=== PATIENT | male | born 1975 | race Caucasian/White ===

== ENCOUNTER 2019-10-06 17:14 | Emergency (ER) | payer SELFPAY ==
[2019-10-06] MEDS ORDERED: KETOROLAC 30 MG/ML INJ ONE (17:59)
[2019-10-06 18:10] LABS: Absolute Lymphocytes (CBC) 1.6 K/uL (0.7-4.9); Basophils % 1.2 % (0-1.3); Hematocrit 43.1 % (39.6-49.0); Lymphocytes % 29.6 % (15.3-44.8); MPV 7.8 fL (7.6-11.3); RBC Red Blood Cell Count 4.63 M/uL (4.33-5.43)
[2019-10-06 18:11] LABS: Protime INR 1.03
[2019-10-06 18:23] LABS: ALT/SGPT 41 U/L (12-78); AST/SGOT 25 U/L (15-37); Albumin 3.6 g/dL (3.4-5.0); Alkaline Phosphatase 57 U/L (45-117); BUN Blood Urea Nitrogen 12 mg/dL (7-18); Bicarbonate 27 mmol/L (21-32); Bilirubin Total 0.3 mg/dL (0.2-1.0); Glucose Level 100 mg/dL (74-106); Potassium 3.7 mmol/L (3.5-5.1); Protein, Total 6.9 g/dL (6.4-8.2); Sodium Level 141 mmol/L (136-145)
--- NOTE | 2019-10-06 18:43 | RAD REPORT ---
EXAM DESCRIPTION: CT - CTHCSPWOC - 10/06/2019 6:12 pm CLINICAL HISTORY: Trauma, head and neck injury. Headache, cervical radiculopathy COMPARISON: <Comparisons> TECHNIQUE: Axial 5 mm thick images of the head were obtained. Axial 2 mm thick images of the cervical spine were obtained with sagittal and coronal reconstruction images generated and reviewed. All CT scans are performed using dose optimization technique as appropriate and may include automated exposure control or mA/KV adjustment according to patient size. FINDINGS: CT HEAD WITHOUT CONTRAST: No acute hemorrhage, hydrocephalus or extra-axial collection is identified.No areas of brain edema or midline shift. Mild mucosal thickening of the maxillary antra.The calvarium is intact. CT CERVICAL SPINE WITHOUT CONTRAST: No fracture or subluxation.No prevertebral soft tissues swelling is identified. IMPRESSION: No acute intracranial or cervical spine findings.
--- NOTE | 2019-10-06 18:47 | RAD REPORT ---
EXAM DESCRIPTION: RAD - Chest Single View - 10/06/2019 6:08 pm CLINICAL HISTORY: numbness of hands Chest pain. COMPARISON: <Comparisons> FINDINGS: Portable technique limits examination quality. The lungs are grossly clear. The heart is normal in size. No displaced fractures. IMPRESSION: No acute intrathoracic process suspected.
--- NOTE | 2019-10-06 19:09 | ER ---
Nurse's Notes [facility] Name: Catracho Simon Age: 44 yrs Sex: Male : 1975 Arrival Date: 10/06/2019 Time: 17:18 Bed 26 Private MD: Diagnosis: Acute maxillary sinusitis;Headache;Carpal tunnel syndrome Presentation: 10/06 17:23 Presenting complaint: Patient states: Akash hand pain, numbness and tingling x approx 1 ph week, worse at night, also reports intermittent headache in frontal area,describes as sharp and stabbing lasting approx 30 min. Transition of care: patient was not received from another setting of care. Onset of symptoms was October 06, 2019. Risk Assessment: Do you want to hurt yourself or someone else? Patient reports no desire to harm self or others. Initial Sepsis Screen: Does the patient meet any 2 criteria? No. Patient's initial sepsis screen is negative. Does the patient have a suspected source of infection? No. Patient's initial sepsis screen is negative. Care prior to arrival:. 17:23 Method Of Arrival: Ambulatory 17:23 Acuity: JACOB 3 ph Triage Assessment: 17:49 Headache History: Denies prior headaches. wh 17:50 Pain: Pain began 1 day ago. Also complains of no other associated symptoms. Historical: - Allergies: 17:27 No Known Allergies; ph - Home Meds: 17:27 None [Active]; ph - PMHx: 17:27 None; ph - Immunization history:: Adult Immunizations not up to date. - Social history:: Smoking status: Patient uses tobacco products, smokes one pack cigarettes per day. - Ebola Screening: : Patient negative for fever greater than or equal to 101.5 degrees Fahrenheit, and additional compatible Ebola Virus Disease symptoms Patient denies exposure to infectious person. Screenin:46 Abuse screen: Denies threats or abuse. Denies injuries from another. Nutritional screening: No deficits noted. Tuberculosis screening: No symptoms or risk factors identified. Fall Risk None identified. Assessment: 17:47 General: Appears in no apparent distress. Behavior is calm, cooperative, appropriate wh for age. Pain: Complains of pain in right arm and left arm Pain does not radiate. Pain currently is 5 out of 10 on a pain scale. Neuro: Level of Consciousness is awake, alert, obeys commands, Oriented to person, place, time, situation, Appropriate for age Television Director are equal bilaterally Moves all extremities. Gait is steady, Speech is normal, Facial symmetry appears normal, Pupils are PERRLA, Intact Reports headache frontal area, paresthesias in right arm and left arm. Cardiovascular: Heart tones S1 S2. Respiratory: Airway is patent Respiratory effort is even, unlabored, Respiratory pattern is regular, symmetrical. GI: Abdomen is flat, non-distended. : No signs and/or symptoms were reported regarding the genitourinary system. EENT: No signs and/or symptoms were reported regarding the EENT system. Derm: Skin is intact, is healthy with good turgor, Skin is pink, warm \T\ dry. normal. Musculoskeletal: Circulation, motion, and sensation intact. 19:33 Reassessment: Patient appears in no apparent distress at this time. No changes from previously documented assessment. Patient and/or family updated on plan of care and expected duration. Pain level reassessed. Patient is alert, oriented x 3, equal unlabored respirations, skin warm/dry/pink. Vital Signs: 17:26 BP 129 / 91; Pulse 78; Resp 18; Temp 98.0; Pulse Ox 97% on R/A; Weight 104.33 kg; ph Height 5 ft. 7 in. (170.18 cm); Pain 8/10; 19:33 BP 124 / 82; Pulse 67; Resp 18; Pulse Ox 97% ; wh 17:26 Body Mass Index 36.02 (104.33 kg, 170.18 cm) ph ED Course: 17:18 Patient arrived in ED. mr 17:26 Triage completed. ph 17:30 Benjie Blake is Primary Nurse. 17:35 Noah Scherer NP is PHCP. pm1 17:35 Kel Lawson MD is Attending Physician. pm1 17:48 Arm band placed on right wrist. 17:49 Patient has correct armband on for positive identification. Bed in low position. Call light in reach. Side rails up X 1. Pulse ox on. NIBP on. 17:59 Initial lab(s) drawn, by wv, sent to lab. Inserted saline lock: 20 gauge in left lt1 antecubital area, using aseptic technique. 18:07 Chest Single View XRAY In Process Unspecified. EDMS 18:12 CT completed. Patient tolerated procedure well. Patient moved back from CT. mw3 18:12 CT Head C Spine In Process Unspecified. EDMS 19:35 Velcro wrist splint applied to bilateral wrist. lt1 20:07 No provider procedures requiring assistance completed. IV discontinued, intact, bleeding controlled, No redness/swelling at site. Administered Medications: 18:08 Drug: TORadol - Ketorolac 15 mg Route: IVP; Site: left antecubital; 19:28 Follow up: Response: No adverse reaction 19:23 Drug: Rocephin 1 grams Route: IV; Rate: calculated rate; Site: left antecubital; 19:32 Follow up: Response: No adverse reaction; IV Status: Completed infusion 19:25 Drug: Zofran 4 mg Route: IVP; Site: left antecubital; 19:32 Follow up: Response: No adverse reaction 19:26 Drug: predniSONE 60 mg Route: PO; 19:28 Follow up: Response: No adverse reaction 19:27 Drug: Amboy 5 mg-325 mg 1 tabs Route: PO; 19:32 Follow up: Response: No adverse reaction Outcome: 19:08 Discharge ordered by MD. pm1 20:07 Discharged to home ambulatory, with family. 20:07 Condition: stable 20:07 Discharge instructions given to patient, family, Instructed on discharge instructions, follow up and referral plans. no drinking with medication, no driving heavy equipment, medication usage, POC Carpal Tunnel and Sinusitis Demonstrated understanding of instructions, follow-up care, medications, splint care, POC Prescriptions given X 3. 20:08 Patient left the ED. Signatures: Dispatcher [employer] EDWI LawrenceTaylor pacheco Patricia, RN RN ph Noah Scherer, SUPPLIER ENGINEER SUPPLIER ENGINEER pm1 Benjie Blake Ebony Jo mw3 Hailey Lala lt1
--- NOTE | 2019-10-06 19:09 | EDPHYS ---
Physician Documentation [facility] Name: Catracho Simon Age: 44 yrs Sex: Male : 1975 Arrival Date: 10/06/2019 Time: 17:18 Bed 26 Private MD: ED Physician Kel Lawson HPI: 10/06 17:58 This 44 yrs old Male presents to ER via Ambulatory with complaints of pm1 Headache, Numbness Of Arm, Numbness Of Hand. 17:58 The patient complains of pain to the forehead. The patient describes the headache as pm1 aching, intermittent. Onset: The symptoms/episode began/occurred 1 week(s) ago. Associated signs and symptoms: Pertinent positives: Pain at right wrist radiating up the arm, right hand numbness. Left hand numbness. Severity of symptoms: in the emergency department the pain has improved. Headache History: Denies prior headaches. The symptoms are alleviated by nothing. the symptoms are aggravated by nothing. The patient has not experienced similar symptoms in the past. The patient has not recently seen a physician. 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 Has been working with a new hand tool. Historical: - Allergies: 17:27 No Known Allergies; ph - Home Meds: 17:27 None [Active]; ph - PMHx: 17:27 None; ph - Immunization history:: Adult Immunizations not up to date. - Social history:: Smoking status: Patient uses tobacco products, smokes one pack cigarettes per day. - Ebola Screening: : Patient negative for fever greater than or equal to 101.5 degrees Fahrenheit, and additional compatible Ebola Virus Disease symptoms Patient denies exposure to infectious person. ROS: 17:58 Constitutional: Negative for fever, chills, and weight loss, Eyes: Negative for injury, pm1 pain, redness, and discharge, ENT: Negative for injury, pain, and discharge, Neck: Negative for injury, pain, and swelling, Cardiovascular: Negative for chest pain, palpitations, and edema, Respiratory: Negative for shortness of breath, cough, wheezing, and pleuritic chest pain, Abdomen/GI: Negative for abdominal pain, nausea, vomiting, diarrhea, and constipation, Back: Negative for injury and pain. 17:58 Skin: Negative for injury, rash, and discoloration. 17:58 MS/extremity: Positive for pain, of the right arm, Negative for decreased range of motion, deformity. 17:58 Neuro: Positive for headache, numbness to right and left hand, Negative for altered mental status, dizziness, weakness. Exam: 17:58 Constitutional: This is a well developed, well nourished patient who is awake, alert, pm1 and in no acute distress. Head/Face: Normocephalic, atraumatic. Eyes: Pupils equal round and reactive to light, extra-ocular motions intact. Lids and lashes normal. Conjunctiva and sclera are non-icteric and not injected. Cornea within normal limits. Periorbital areas with no swelling, redness, or edema. ENT: Nares patent. No nasal discharge, no septal abnormalities noted. Tympanic membranes are normal and external auditory canals are clear. Oropharynx with no redness, swelling, or masses, exudates, or evidence of obstruction, uvula midline. Mucous membranes moist. Neck: Trachea midline, no thyromegaly or masses palpated, and no cervical lymphadenopathy. Supple, full range of motion without nuchal rigidity, or vertebral point tenderness. No Meningismus. Chest/axilla: Normal chest wall appearance and motion. Nontender with no deformity. No lesions are appreciated. Cardiovascular: Regular rate and rhythm with a normal S1 and S2. No gallops, murmurs, or rubs. Normal PMI, no JVD. No pulse deficits. Respiratory: Lungs have equal breath sounds bilaterally, clear to auscultation and percussion. No rales, rhonchi or wheezes noted. No increased work of breathing, no retractions or nasal flaring. Abdomen/GI: Soft, non-tender, with normal bowel sounds. No distension or tympany. No guarding or rebound. No evidence of tenderness throughout. Back: No spinal tenderness. No costovertebral tenderness. Full range of motion. Skin: Warm, dry with normal turgor. Normal color with no rashes, no lesions, and no evidence of cellulitis. 17:58 Musculoskeletal/extremity: Extremities: grossly normal except: Positive Phalen's and Tinel test to right wrist, ROM: no acute changes, Circulation is intact in all extremities. 17:58 Neuro: Orientation: is normal, Cranial nerves: CN II- XII are normal as tested, Cerebellar function: normal finger to nose testing, Motor: is normal, moves all fours, Sensation: is normal, no obvious gross deficits, Gait: is steady, at a normal pace, without difficulty. Vital Signs: 17:26 BP 129 / 91; Pulse 78; Resp 18; Temp 98.0; Pulse Ox 97% on R/A; Weight 104.33 kg; ph Height 5 ft. 7 in. (170.18 cm); Pain 8/10; 19:33 BP 124 / 82; Pulse 67; Resp 18; Pulse Ox 97% ; wh 17:26 Body Mass Index 36.02 (104.33 kg, 170.18 cm) ph MDM: 17:36 Patient medically screened. pm1 19:08 Data reviewed: vital signs. Data interpreted: Pulse oximetry: on room air is 97 %. pm1 Interpretation: normal. Counseling: I had a detailed discussion with the patient and/or guardian regarding: the historical points, exam findings, and any diagnostic results supporting the discharge/admit diagnosis, lab results, radiology results, the need for outpatient follow up, to return to the emergency department if symptoms worsen or persist or if there are any questions or concerns that arise at home. 10/06 17:49 Order name: CBC with Diff; Complete Time: 18:31 pm1 10/06 17:49 Order name: CMP; Complete Time: 18:31 pm1 10/06 17:49 Order name: CT Head C Spine; Complete Time: 18:56 pm1 10/06 17:49 Order name: Chest Single View XRAY; Complete Time: 18:56 pm1 10/06 17:49 Order name: PT-INR; Complete Time: 18:31 pm1 10/06 17:49 Order name: EKG; Complete Time: 17:51 pm1 10/06 17:49 Order name: EKG - Nurse/Tech; Complete Time: 17:57 pm1 10/06 17:49 Order name: IV Saline Lock; Complete Time: 17:57 pm1 10/06 19:10 Order name: Wrist Splint; Complete Time: 19:26 pm1 Administered Medications: 18:08 Drug: TORadol - Ketorolac 15 mg Route: IVP; Site: left antecubital; 19:28 Follow up: Response: No adverse reaction 19:23 Drug: Rocephin 1 grams Route: IV; Rate: calculated rate; Site: left antecubital; 19:32 Follow up: Response: No adverse reaction; IV Status: Completed infusion 19:25 Drug: Zofran 4 mg Route: IVP; Site: left antecubital; 19:32 Follow up: Response: No adverse reaction 19:26 Drug: predniSONE 60 mg Route: PO; 19:28 Follow up: Response: No adverse reaction 19:27 Drug: Linwood 5 mg-325 mg 1 tabs Route: PO; 19:32 Follow up: Response: No adverse reaction Disposition: 10/07 07:13 Co-signature as Attending Physician, Kel Lawson MD I agree with the assessment and kdr plan of care. Disposition: 10/06/19 19:08 Discharged to Home. Impression: Acute maxillary sinusitis, Headache, Carpal tunnel syndrome. - Condition is Stable. - Discharge Instructions: Carpal Tunnel Syndrome, General Headache Without Cause, Sinusitis, Adult, Wrist Splint. - Prescriptions for Amoxicillin 500 mg Oral Capsule - take 1 capsule by ORAL route every 8 hours for 10 days; 30 tablet. Tylenol- Codeine #3 300-30 mg Oral Tablet - take 2 tablet by ORAL route every 6 hours As needed; 30 tablet. Zofran 4 mg Oral Tablet - take 1 tablet by ORAL route every 12 hours As needed; 20 tablet. Medrol (Kel) 4 mg Oral Tablets, Dose Pack - take 1 tablet by ORAL route as directed - follow package instructions; 1 packet. - Work release form, Medication Reconciliation Form, Thank You Letter, Antibiotic Education, Prescription Opioid Use form. - Follow up: Emergency Department; When: As needed; Reason: Worsening of condition. Follow up: Private Physician; When: 2 - 3 days; Reason: Recheck today's complaints, Continuance of care, Re-evaluation by your physician. - Problem is new. - Symptoms have improved. Signatures: Dispatcher [employer] EDMS Kel Lawson MD MD [facility] Christa Vann RN RN Noah Tran, MARCEL CHICKEN BONER pm1 Benjie Blake Corrections: (The following items were deleted from the chart) 10/06 20:08 19:08 10/06/2019 19:08 Discharged to Home. Impression: Acute maxillary sinusitis; Headache; Carpal tunnel syndrome. Condition is Stable. Forms are Medication Reconciliation Form, Thank You Letter, Antibiotic Education, Prescription Opioid Use. Follow up: Emergency Department; When: As needed; Reason: Worsening of condition. Follow up: Private Physician; When: 2 - 3 days; Reason: Recheck today's complaints, Continuance of care, Re-evaluation by your physician. Problem is new. Symptoms have improved. pm1
[2019-10-06] MEDS ORDERED: HYDROCODONE/APAP 5/325 MG TAB ONE (19:21)
[2019-10-06] MEDS ORDERED: predniSONE 20 MG TAB ONE (19:21)
[2019-10-06] MEDS ORDERED: ONDANSETRON 4 MG/2 ML VIAL ONE (19:21)
[2019-10-06] MEDS ORDERED: CEFTRIAXONE/SWI 1gm 1 GM/10 ML SYR ONE (19:22)
[2019-10-06 20:25] VITALS: TEMP 98; O2SAT 97
[2019-10-06 20:27] VITALS: BP 124/82
--- NOTE | 2019-10-07 14:14 | EKG ---
Test Date: 2019-10-06 Test Time: 17:55:24 Computer Sciences Professor: [place] MEASUREMENT RESULTS: Intervals: Rate: 64 PA: 150 QRSD: 98 QT: 382 QTc: 394 Confluence: P: 57 PA: 150 QRS: -23 T: 18 INTERPRETIVE STATEMENTS: Normal sinus rhythm Normal ECG No previous ECG available for comparison Electronically Signed On 10-07-19 14:13:42 CUSTOM CAR BUILDER by Juan David Lopez
== END 2019-10-06 20:08 | disposition home or self-care (01) ==
LOC: ER 17:14
DX: J01.00 Acute maxillary sinusitis, unspecified (principal); G56.00 Carpal tunnel syndrome, unspecified upper limb; F17.210 Nicotine dependence, cigarettes, uncomplicated
CPT/HCPCS: 36415; 70450; 71045; 72125; 80053; 85025; 85610; 93005; 96374; 96375; 99284; J0696; J2405; J7512

== ENCOUNTER 2019-11-17 12:41 | Emergency (ER) | payer SELFPAY ==
[2019-11-17] MEDS ORDERED: OSELTAMIVIR 75 MG CAP ONE (13:28)
[2019-11-17] MEDS ORDERED: AZITHROMYCIN 250 MG TAB ONE (13:29)
[2019-11-17] MEDS ORDERED: IBUPROFEN 400 MG TAB ONE (13:29)
--- NOTE | 2019-11-17 13:32 | ER ---
Nurse's Notes [facility] Name: Catracho Simon Age: 44 yrs Sex: Male : 1975 Arrival Date: 11/17/2019 Time: 12:44 Bed 24 Private MD: Diagnosis: Fever, unspecified;Influenza due to other identified influenza virus;Cough;Acute upper respiratory infection, unspecified Presentation: 11/17 12:52 Presenting complaint: Patient states: Body aches a fever started yesterday, reports jl7 nausea, denies V/D. Transition of care: patient was not received from another setting of care. Onset of symptoms was November 16, 2019. Risk Assessment: Do you want to hurt yourself or someone else? Patient reports no desire to harm self or others. Initial Sepsis Screen: Does the patient meet any 2 criteria? No. Patient's initial sepsis screen is negative. Does the patient have a suspected source of infection? No. Patient's initial sepsis screen is negative. Care prior to arrival: Medication(s) given: Tylenol, 650 mg, at 1100. 12:52 Method Of Arrival: Ambulatory jl7 12:52 Acuity: JACOB 4 jl7 Triage Assessment: 12:54 General: Appears in no apparent distress. uncomfortable, ill, Behavior is calm, jl7 cooperative, appropriate for age. Pain: Complains of pain in all over Pain currently is 8 out of 10 on a pain scale. Quality of pain is described as aching. Historical: - Allergies: 12:54 No Known Allergies; jl7 - Home Meds: 12:54 None [Active]; jl7 - PMHx: 12:54 None; jl7 - PSHx: 12:54 None; jl7 - Immunization history:: Adult Immunizations not up to date. - Social history:: Smoking status: Patient uses tobacco products, smokes one-half pack cigarettes per day. - Ebola Screening: : No symptoms or risks identified at this time. - Family history:: not pertinent. Screenin:00 Abuse screen: Denies threats or abuse. Denies injuries from another. Nutritional jl7 screening: No deficits noted. Tuberculosis screening: No symptoms or risk factors identified. Fall Risk None identified. Assessment: 13:29 General: Appears in no apparent distress. comfortable, Behavior is calm, cooperative. mg2 Pain: Denies pain. Neuro: Level of Consciousness is awake, alert, obeys commands, Oriented to person, place, time, situation. Cardiovascular: Capillary refill < 3 seconds Patient's skin is warm and dry. Respiratory: Airway is patent Respiratory effort is even, unlabored, Respiratory pattern is regular, symmetrical. Respiratory: Reports cough that is. GI: No signs and/or symptoms were reported involving the gastrointestinal system. : No signs and/or symptoms were reported regarding the genitourinary system. EENT: No signs and/or symptoms were reported regarding the EENT system. Derm: Skin is intact, is healthy with good turgor, Skin is pink, warm \T\ dry. normal. Musculoskeletal: Circulation, motion, and sensation intact. Capillary refill < 3 seconds. Vital Signs: 12:54 BP 128 / 73; Pulse 120; Resp 19 S; Temp 100.3(O); Pulse Ox 96% on R/A; Weight 104.33 kg jl7 (R); Pain 8/10; 13:46 BP 122 / 70; Pulse 115; Resp 18; Temp 100.8; Pulse Ox 100% on R/A; mg2 ED Course: 12:44 Patient arrived in ED. mr 12:54 Triage completed. jl7 12:54 Arm band placed on right wrist. jl7 12:56 Raffi Goss MD is Attending Physician. [facility] 13:00 Patient has correct armband on for positive identification. Bed in low position. Call jl light in reach. Side rails up X 1. 13:00 Flu and/or RSV swab sent to lab. jl 13:05 Igor Mccoy RN is Primary Nurse. mg2 13:30 No provider procedures requiring assistance completed. Patient did not have IV access mg2 during this emergency room visit. Administered Medications: 13:28 Drug: Zithromax 500 mg Route: PO; mg2 13:47 Follow up: Response: No adverse reaction; Medication administered at discharge. mg2 13:29 Drug: Motrin 800 mg Route: PO; mg2 13:47 Follow up: Response: No adverse reaction; Medication administered at discharge. mg2 13:29 Drug: Tamiflu 75 mg Route: PO; mg2 13:47 Follow up: Response: No adverse reaction; Medication administered at discharge. mg2 Outcome: 13:31 Discharge ordered by . [facility] 13:46 Discharged to home ambulatory, with family. mg2 13:46 Condition: stable 13:46 Discharge instructions given to patient, family, Instructed on discharge instructions, follow up and referral plans. medication usage, Demonstrated understanding of instructions, follow-up care, medications, Prescriptions given X 3. 13:47 Patient left the ED. mg2 Signatures: Raffi Goss MD MD cha Rivera, Mary mr Leal, Jahala, RN RN jl7 Igor Mccoy RN RN mg2
--- NOTE | 2019-11-17 13:32 | EDPHYS ---
Physician Documentation [facility] Name: Catracho Simon Age: 44 yrs Sex: Male : 1975 Arrival Date: 11/17/2019 Time: 12:44 Bed 24 Private MD: DAVINA Physician Raffi Goss HPI: 11/17 13:22 This 44 yrs old Male presents to ER via Ambulatory with complaints of Flu edwin Symptoms. 13:22 fever, cough, sob. The patient or guardian reports cough, difficulty breathing. Onset: edwin The symptoms/episode began/occurred 2 day(s) ago. Severity of symptoms: At their worst the symptoms were mild, moderate, in the emergency department the symptoms are unchanged. Modifying factors: The symptoms are alleviated by nothing, the symptoms are aggravated by nothing. The patient reports fever, that was measured at 100 degrees Fahrenheit. Historical: - Allergies: 12:54 No Known Allergies; jl7 - Home Meds: 12:54 None [Active]; jl7 - PMHx: 12:54 None; jl7 - PSHx: 12:54 None; jl7 - Immunization history:: Adult Immunizations not up to date. - Social history:: Smoking status: Patient uses tobacco products, smokes one-half pack cigarettes per day. - Ebola Screening: : No symptoms or risks identified at this time. - Family history:: not pertinent. ROS: 13:22 Eyes: Negative for injury, pain, redness, and discharge, ENT: Negative for injury, edwin pain, and discharge, Neck: Negative for injury, pain, and swelling, Abdomen/GI: Negative for abdominal pain, nausea, vomiting, diarrhea, and constipation, Back: Negative for injury and pain, : Negative for injury, bleeding, discharge, and swelling, MS/Extremity: Negative for injury and deformity, Skin: Negative for injury, rash, and discoloration, Neuro: Negative for headache, weakness, numbness, tingling, and seizure, Psych: Negative for depression, anxiety, suicide ideation, homicidal ideation, and hallucinations, Allergy/Immunology: Negative for hives, rash, and allergies. 13:22 Cardiovascular: Positive for 13:22 Respiratory: Positive for cough, with no reported sputum. Exam: 13:22 Constitutional: This is a well developed, well nourished patient who is awake, alert, edwni and in no acute distress. Head/Face: Normocephalic, atraumatic. Eyes: Pupils equal round and reactive to light, extra-ocular motions intact. Lids and lashes normal. Conjunctiva and sclera are non-icteric and not injected. Cornea within normal limits. Periorbital areas with no swelling, redness, or edema. ENT: Nares patent. No nasal discharge, no septal abnormalities noted. Tympanic membranes are normal and external auditory canals are clear. Oropharynx with no redness, swelling, or masses, exudates, or evidence of obstruction, uvula midline. Mucous membranes moist. Neck: Trachea midline, no thyromegaly or masses palpated, and no cervical lymphadenopathy. Supple, full range of motion without nuchal rigidity, or vertebral point tenderness. No Meningismus. Chest/axilla: Normal chest wall appearance and motion. Nontender with no deformity. No lesions are appreciated. Abdomen/GI: Soft, non-tender, with normal bowel sounds. No distension or tympany. No guarding or rebound. No evidence of tenderness throughout. Back: No spinal tenderness. No costovertebral tenderness. Full range of motion. Skin: Warm, dry with normal turgor. Normal color with no rashes, no lesions, and no evidence of cellulitis. MS/ Extremity: Pulses equal, no cyanosis. Neurovascular intact. Full, normal range of motion. Neuro: Awake and alert, GCS 15, oriented to person, place, time, and situation. Cranial nerves II-XII grossly intact. Motor strength 5/5 in all extremities. Sensory grossly intact. Cerebellar exam normal. Normal gait. Psych: Awake, alert, with orientation to person, place and time. Behavior, mood, and affect are within normal limits. 13:22 Cardiovascular: Rate: tachycardic, Rhythm: regular, Pulses: Pulses are 4+ in bilateral radial, brachial, femoral, popliteal, posterior tibial and and dorsalis pedis arteries.. Edema: is not appreciated, JVD: is not appreciated. Vital Signs: 12:54 BP 128 / 73; Pulse 120; Resp 19 S; Temp 100.3(O); Pulse Ox 96% on R/A; Weight 104.33 kg jl7 (R); Pain 8/10; 13:46 BP 122 / 70; Pulse 115; Resp 18; Temp 100.8; Pulse Ox 100% on R/A; mg2 MDM: 12:56 Patient medically screened. [facility] 11/17 12:56 Order name: Flu jl7 Administered Medications: 13:28 Drug: Zithromax 500 mg Route: PO; mg2 13:47 Follow up: Response: No adverse reaction; Medication administered at discharge. mg2 13:29 Drug: Motrin 800 mg Route: PO; mg2 13:47 Follow up: Response: No adverse reaction; Medication administered at discharge. mg2 13:29 Drug: Tamiflu 75 mg Route: PO; mg2 13:47 Follow up: Response: No adverse reaction; Medication administered at discharge. mg2 Disposition: 11/17/19 13:31 Discharged to Home. Impression: Fever, unspecified, Influenza due to other identified influenza virus, Cough, Acute upper respiratory infection, unspecified. - Condition is Stable. - Discharge Instructions: Fever, Adult, Influenza, Adult, Upper Respiratory Infection, Adult, Upper Respiratory Infection, Adult, [id number], Influenza, Adult, [id number]-mr-[id number], Cough, Adult, Atlb-ts-Rtjc, Cough, Adult, Fever, Adult, Zvqg-oi-[id number]. - Prescriptions for Tamiflu 75 mg Oral Capsule - take 1 tablet by ORAL route every 12 hours for 5 days; 10 tablet. Guaifenesin AC 10- 100 mg/5 mL Oral Liquid - take 10 milliliters by ORAL route every 6 hours As needed; 160 milliliter. Zithromax 500 mg Oral Tablet - take 1 tablet by ORAL route once daily for 4 days; 4 tablet. - Medication Reconciliation Form, Thank You Letter, Antibiotic Education, Prescription Opioid Use form. - Follow up: Private Physician; When: 2 - 3 days; Reason: Recheck today's complaints, Continuance of care, Re-evaluation by your physician. - Problem is new. - Symptoms have improved. Signatures: Dispatcher [employer] EDMS Raffi Goss MD MD cha Leal, Jahala RN RN jl7 Igor Mccoy RN RN mg2 Corrections: (The following items were deleted from the chart) 13:47 13:31 11/17/2019 13:31 Discharged to Home. Impression: Fever, unspecified; Influenza mg2 due to other identified influenza virus; Cough; Acute upper respiratory infection, unspecified. Condition is Stable. Forms are Medication Reconciliation Form, Thank You Letter, Antibiotic Education, Prescription Opioid Use. Follow up: Private Physician; When: 2 - 3 days; Reason: Recheck today's complaints, Continuance of care, Re-evaluation by your physician. Problem is new. Symptoms have improved. edwin
== END 2019-11-17 13:47 | disposition home or self-care (01) ==
LOC: ER 12:41
DX: J10.1 Influenza due to other identified influenza virus with other respiratory manifestations (principal); F17.210 Nicotine dependence, cigarettes, uncomplicated
CPT/HCPCS: 87804; 99283

== ENCOUNTER 2020-05-13 23:11 | Emergency (ER) | payer SELFPAY ==
[2020-05-14] MEDS ORDERED: dexAMETHasone 10 MG/ML VIAL ONE (00:02)
--- NOTE | 2020-05-14 00:13 | EDPHYS ---
Physician Documentation [facility] Name: Catracho Simon Age: 45 yrs Sex: Male : 1975 Arrival Date: 05/13/2020 Time: 23:14 Bed 4 Private MD: ED Physician Mehdi Jarrett HPI: 05/13 23:45 This 45 yrs old Male presents to ER via Ambulatory with complaints of Hand jr8 Swelling. 23:45 Onset: The symptoms/episode began/occurred gradually, 2 week(s) ago. Modifying factors: jr8 The symptoms are alleviated by nothing, the symptoms are aggravated by nothing. Associated signs and symptoms: Pertinent positives: itching . Severity of symptoms: At their worst the symptoms were moderate, in the emergency department the symptoms are unchanged. The patient has not experienced similar symptoms in the past. The patient has not recently seen a physician. 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 Started to have itching of hands, neck, chest for jr8 past couple of weeks. Now just isolated to hands. Stated that it is not going away with OTC medications and now having skin breakdown from itching . Historical: - Allergies: 05/13 23:20 No Known Allergies; ll1 - PSHx: 23:20 None; ll1 - Immunization history:: Flu vaccine is up to date. - Social history:: Smoking status: Patient reports the use of cigarette tobacco products, smokes one-half pack cigarettes per day, Patient/guardian denies using alcohol, street drugs. ROS: 05/14 00:08 Eyes: Negative for injury, pain, redness, and discharge, ENT: Negative for injury, jr8 pain, and discharge, Neck: Negative for injury, pain, and swelling, Cardiovascular: Negative for chest pain, palpitations, and edema, Respiratory: Negative for shortness of breath, cough, wheezing, and pleuritic chest pain, Abdomen/GI: Negative for abdominal pain, nausea, vomiting, diarrhea, and constipation, Back: Negative for injury and pain, MS/Extremity: Negative for injury and deformity, Neuro: Negative for headache, weakness, numbness, tingling, and seizure. Skin: Positive for erythema, rash, of the right hand and left hand. Exam: 00:08 Eyes: Pupils equal round and reactive to light, extra-ocular motions intact. Lids and jr8 lashes normal. Conjunctiva and sclera are non-icteric and not injected. Cornea within normal limits. Periorbital areas with no swelling, redness, or edema. ENT: Nares patent. No nasal discharge, no septal abnormalities noted. Tympanic membranes are normal and external auditory canals are clear. Oropharynx with no redness, swelling, or masses, exudates, or evidence of obstruction, uvula midline. Mucous membranes moist. Neck: Trachea midline, no thyromegaly or masses palpated, and no cervical lymphadenopathy. Supple, full range of motion without nuchal rigidity, or vertebral point tenderness. No Meningismus. Cardiovascular: Regular rate and rhythm with a normal S1 and S2. No gallops, murmurs, or rubs. Normal PMI, no JVD. No pulse deficits. Respiratory: Lungs have equal breath sounds bilaterally, clear to auscultation and percussion. No rales, rhonchi or wheezes noted. No increased work of breathing, no retractions or nasal flaring. Abdomen/GI: Soft, non-tender, with normal bowel sounds. No distension or tympany. No guarding or rebound. No evidence of tenderness throughout. Back: No spinal tenderness. No costovertebral tenderness. Full range of motion. MS/ Extremity: Pulses equal, no cyanosis. Neurovascular intact. Full, normal range of motion. Neuro: Awake and alert, GCS 15, oriented to person, place, time, and situation. Cranial nerves II-XII grossly intact. Motor strength 5/5 in all extremities. Sensory grossly intact. Cerebellar exam normal. Normal gait. 00:08 Skin: Patient has dryness and excoriated skin to dorsal hands and wrists. Small skin break down also noted to tops of hands. No rash identified. Hands do have mild swelling to them bilaterally . Vital Signs: 05/13 23:18 BP 123 / 87; Pulse 87; Resp 18; Temp 98.1; Pulse Ox 94% ; Pain 9/10; ll1 05/14 00:00 BP 131 / 84; Pulse 79; Resp 16; Pulse Ox 98% on R/A; jb4 MDM: 05/13 23:39 Patient medically screened. jr8 05/14 00:08 Data reviewed: vital signs, nurses notes, and as a result, I will discharge patient. jr8 Data interpreted: Pulse oximetry: on room air is 96 %. Interpretation: normal. Counseling: I had a detailed discussion with the patient and/or guardian regarding: the historical points, exam findings, and any diagnostic results supporting the discharge/admit diagnosis, the need for outpatient follow up, a family practitioner. Response to treatment: the patient's symptoms have mildly improved after treatment. Administered Medications: 00:03 Drug: Decadron 10 mg Route: IM; Site: right deltoid; jb4 00:20 Follow up: Response: No adverse reaction rr5 Disposition: 01:21 Co-signature as Attending Physician, Mehdi Jarrett MD. mh7 Disposition: 05/14/20 00:12 Discharged to Home. Impression: Allergic contact dermatitis. - Condition is Stable. - Discharge Instructions: Contact Dermatitis. - Prescriptions for Prednisone 20 mg Oral Tablet - take 3 tablets by ORAL route once daily for 5 days then two tablets once a day for 3 days, then 1 tablet once a day for 2 days; 23 tablet. - Medication Reconciliation Form, Thank You Letter, Antibiotic Education, Prescription Opioid Use, Work release form form. - Follow up: Private Physician; When: 2 - 3 days; Reason: Recheck today's complaints, Continuance of care, Re-evaluation by your physician. - Problem is new. - Symptoms have improved. Signatures: Andre Barnes PA PA jr8 Terrence Farmer RN RN jb4 Ras Josue RN RN rr5 Tal Rodriguez RN RN ll1 Mehdi Jarrett MD MD mh7 Corrections: (The following items were deleted from the chart) 00:22 00:12 05/14/2020 00:12 Discharged to Home. Impression: Allergic contact dermatitis. rr5 Condition is Stable. Forms are Medication Reconciliation Form, Thank You Letter, Antibiotic Education, Prescription Opioid Use. Follow up: Private Physician; When: 2 - 3 days; Reason: Recheck today's complaints, Continuance of care, Re-evaluation by your physician. Problem is new. Symptoms have improved. jr8
--- NOTE | 2020-05-14 00:13 | ER ---
Nurse's Notes [facility] Name: Catracho Simon Age: 45 yrs Sex: Male : 1975 Arrival Date: 05/13/2020 Time: 23:14 Bed 4 Private MD: Diagnosis: Allergic contact dermatitis Presentation: 05/13 23:18 Chief complaint: Patient states: Rash with itching to body for 2 weeks. Hands are ll1 getting swollen, cracking skin, and painful. No fever. Tried OTC medication for poison tray, no relief. Coronavirus screen: Proceed with normal triage. Patient denies a cough. Patient denies shortness of breath or difficulty breathing. Patient denies measured and/or subjective temperature greater than 100.4F prior to today's visit. Patient denies travel on a cruise ship or to a country the [facility] currently lists as an affected area. Patient denies contact with known and/or suspected case of COVID-19. Ebola Screen: Patient denies travel to an Ebola-affected area in the 21 days before illness onset. Initial Sepsis Screen: Does the patient meet any 2 criteria? No. Patient's initial sepsis screen is negative. Risk Assessment: Do you want to hurt yourself or someone else? Patient reports no desire to harm self or others. Onset of symptoms was April 29, 2020. 23:18 Method Of Arrival: Ambulatory ll1 23:18 Acuity: JACOB 3 ll1 23:18 Initial Sepsis Screen: Does the patient have a suspected source of infection? No. rr5 Patient's initial sepsis screen is negative. Historical: - Allergies: 23:20 No Known Allergies; ll1 - PSHx: 23:20 None; ll1 - Immunization history:: Flu vaccine is up to date. - Social history:: Smoking status: Patient reports the use of cigarette tobacco products, smokes one-half pack cigarettes per day, Patient/guardian denies using alcohol, street drugs. Screenin:30 Abuse screen: Denies threats or abuse. Nutritional screening: No deficits noted. jb4 Tuberculosis screening: No symptoms or risk factors identified. Fall Risk None identified. Assessment: 23:30 General: Appears in no apparent distress. comfortable, Behavior is calm, cooperative, jb4 appropriate for age. Pain: Denies pain. Neuro: Level of Consciousness is awake, alert, obeys commands, Oriented to person, place, time, situation. Cardiovascular: Patient's skin is warm and dry. Respiratory: Airway is patent Respiratory effort is even, unlabored, Respiratory pattern is regular, symmetrical. GI: No signs and/or symptoms were reported involving the gastrointestinal system. : No signs and/or symptoms were reported regarding the genitourinary system. EENT: No signs and/or symptoms were reported regarding the EENT system. Derm: Skin is pink, warm \T\ dry. Musculoskeletal: Circulation, motion, and sensation intact. Range of motion: intact in all extremities, Swelling present in left hand and right arm. Injury Description: Abrasion sustained to dorsal aspect of middle phalanx of right index finger and heel of right hand is scabbed. 05/14 00:18 Reassessment: Patient appears in no apparent distress at this time. Patient and/or jb4 family updated on plan of care and expected duration. Pain level reassessed. Patient is alert, oriented x 3, equal unlabored respirations, skin warm/dry/pink. Vital Signs: 05/13 23:18 BP 123 / 87; Pulse 87; Resp 18; Temp 98.1; Pulse Ox 94% ; Pain 9/10; ll1 05/14 00:00 BP 131 / 84; Pulse 79; Resp 16; Pulse Ox 98% on R/A; jb4 ED Course: 05/13 23:14 Patient arrived in ED. cl3 23:19 Triage completed. ll1 23:21 Arm band placed on Patient placed in an exam room, on a stretcher. ll1 23:30 Patient has correct armband on for positive identification. Bed in low position. Call jb4 light in reach. Side rails up X 1. Pulse ox on. NIBP on. 23:34 Terrence Farmer, MAGALYS is Primary Nurse. jb4 23:39 Andre Barnes PA is PHCP. jr8 23:39 Mehdi Jarrett MD is Attending Physician. jr8 05/14 00:19 No provider procedures requiring assistance completed. IV discontinued, intact, jb4 bleeding controlled, No redness/swelling at site. Pressure dressing applied. Administered Medications: 00:03 Drug: Decadron 10 mg Route: IM; Site: right deltoid; jb4 00:20 Follow up: Response: No adverse reaction rr5 Outcome: 00:12 Discharge ordered by . lai 00:20 Discharged to home ambulatory. rr5 00:20 Condition: stable 00:20 Discharge instructions given to patient, Instructed on discharge instructions, follow up and referral plans. medication usage, Demonstrated understanding of instructions, follow-up care, medications, Prescriptions given X 1. 00:22 Patient left the ED. rr5 Signatures: Andre Barnes PA PA jr8 Terrence Farmer RN RN jb4 Ras Josue RN RN rr5 Hetal Rodriguez cl3 Tal Rodriguez RN RN ll1 Corrections: (The following items were deleted from the chart) 05/13 23:23 23:18 Chief complaint: Patient states: Rash with itching to body for 2 weeks. Hands are ll1 getting swollen, cracking skin, and painful. ll1 05/14 00:04 00:03 Decadron 10 mg IM in left deltoid jb4 jb4
[2020-05-14 00:51] VITALS: TEMP 98.1
[2020-05-14 00:53] VITALS: BP 131/84; O2SAT 98
== END 2020-05-14 00:22 | disposition home or self-care (01) ==
LOC: ER 23:11
DX: L23.9 Allergic contact dermatitis, unspecified cause (principal); F17.210 Nicotine dependence, cigarettes, uncomplicated
CPT/HCPCS: 96372; 99283

== ENCOUNTER 2021-02-14 16:59 | Emergency (ER) | payer SELFPAY ==
[2021-02-14 17:23] LABS: Urine Blood 2+ (Negative); Urine Glucose Negative (Negative); Urine Protein 2+ (Negative); Urine pH 5.5 (5.0-7.0)
[2021-02-14] MEDS ORDERED: IBUPROFEN 400 MG TAB ONE (17:34)
[2021-02-14 18:01] LABS: Urine Bacteria 20-50 /HPF (NONE SEEN); Urine RBC <5 /HPF (NONE SEEN)
[2021-02-14] MEDS ORDERED: NA CHLORIDE 0.9% 1,000 ML ONE (19:31)
[2021-02-14 19:34] LABS: Basophils % 0.8 % (0-1.3); Hematocrit 44.4 % (39.6-49.0); Lymphocytes % 10.3 % (15.3-44.8); MPV 7.9 fL (7.6-11.3); RBC Red Blood Cell Count 4.81 M/uL (4.33-5.43)
[2021-02-14 19:54] LABS: Albumin 3.5 g/dL (3.4-5.0); Bilirubin Direct 0.1 mg/dL (0-0.2); Bilirubin Total 0.4 mg/dL (0.2-1.0); Potassium 3.5 mmol/L (3.5-5.1); Protein, Total 7.4 g/dL (6.4-8.2)
--- NOTE | 2021-02-14 20:34 | EDPHYS ---
Physician Documentation [facility] Name: Catracho Simon Age: 45 yrs Sex: Male : 1975 Arrival Date: 02/14/2021 Time: 17:01 Bed 15 Private MD: ED Physician Nahid Oliveira HPI: 02/14 19:00 This 45 yrs old Male presents to ER via Ambulatory with complaints of Fever, cp Decreased Appetite. 19:00 The patient reports fever, with an emergency department temperature of 102.4 degrees cp Fahrenheit. 19:00 Onset: The symptoms/episode began/occurred 3 day(s) ago. cp 19:00 Associated signs and symptoms: Pertinent positives: dysuria, body aches, headache. cp Severity of symptoms: in the emergency department the symptoms are unchanged despite home interventions. Historical: - Allergies: 17:11 No Known Allergies; ca1 - Home Meds: 17:11 None [Active]; ca1 - PMHx: 17:11 None; ca1 - PSHx: 17:11 None; ca1 - Immunization history:: Flu vaccine is not up to date. - Social history:: Smoking status: Patient reports the use of cigarette tobacco products, smokes one-half pack cigarettes per day, Smoking status: Patient reports the use of cigarette tobacco products, smokes one-half pack cigarettes per day, Patient/guardian denies using alcohol. ROS: 19:05 Constitutional: Positive for fever, Negative for poor PO intake. cp 19:05 Eyes: Negative for injury, pain, redness, and discharge. cp 19:05 ENT: Negative for ear pain, sore throat, difficulty swallowing, difficulty handling secretions. 19:05 Cardiovascular: Negative for chest pain. 19:05 Respiratory: Negative for cough, shortness of breath, wheezing. 19:05 Abdomen/GI: Negative for abdominal pain, nausea, vomiting, and diarrhea, constipation. 19:05 Back: Negative for pain at rest, pain with movement. 19:05 : Positive for small amounts, burning with urination, Negative for testicular pain 19:05 Neuro: Negative for altered mental status, headache, weakness. 19:05 All other systems are negative. Exam: 19:15 Head/Face: Normocephalic, atraumatic. cp 19:15 Constitutional: The patient appears in no acute distress, alert, awake, non-diaphoretic, non-toxic, well developed, well nourished, febrile. 19:15 Eyes: Periorbital structures: appear normal, Conjunctiva: normal, no exudate, no injection, Sclera: no appreciated abnormality, Lids and lashes: appear normal, bilaterally. 19:15 ENT: External ear(s): are unremarkable, Nose: is normal, Mouth: Lips: moist, Oral mucosa: pink and intact, moist, Posterior pharynx: Airway: no evidence of obstruction, patent. 19:15 Neck: ROM/movement: is normal, is supple, without pain, no range of motions limitations, no meningismus. 19:15 Chest/axilla: Inspection: normal, Palpation: is normal, no crepitus, no tenderness. 19:15 Cardiovascular: Rate: normal, Rhythm: regular, Edema: is not appreciated, JVD: is not cp appreciated. 19:15 Respiratory: the patient does not display signs of respiratory distress, Respirations: normal, no use of accessory muscles, no retractions, labored breathing, is not present, Breath sounds: are clear throughout, no decreased breath sounds, no stridor, no wheezing. 19:15 Abdomen/GI: Inspection: abdomen appears normal, Bowel sounds: active, all quadrants, Palpation: abdomen is soft and non-tender, in all quadrants, rebound tenderness, is not appreciated, voluntary guarding, is not appreciated, involuntary guarding, is not appreciated. 19:15 Back: pain, is absent, ROM is normal, CVA tenderness, is absent. 19:15 Skin: no rash present. 19:15 Neuro: Orientation: to person, place \T\ time. Mentation: is normal, Motor: moves all fours, strength is normal. Vital Signs: 17:07 BP 140 / 85; Pulse 107; Resp 18 S; Temp 102.4(TE); Pulse Ox 96% on R/A; Weight 95.25 kg ca1 (R); Height 5 ft. 7 in. (170.18 cm) (R); 18:24 BP 117 / 78; Pulse 93; Resp 18; Temp 99.9(O); Pulse Ox 97% on R/A; Weight 95.25 kg; dh4 Height 5 ft. 7 in. (170.18 cm); Pain 0/10; 18:26 BP 117 / 78; Pulse 93; Resp 18; Temp 99.9(O); Pulse Ox 97% on R/A; Weight 95.25 kg; ld1 Height 5 ft. 7 in. (170.18 cm); Pain 0/10; 18:54 BP 123 / 77; Pulse 85; Resp 18; Pulse Ox 98% on R/A; Pain 0/10; ld1 19:20 BP 106 / 73; Pulse 71; Resp 19; Pulse Ox 98% on R/A; Pain 0/10; em 20:20 BP 111 / 79; Pulse 86; Resp 19; Pulse Ox 99% on R/A; em 18:26 Body Mass Index 32.89 (95.25 kg, 170.18 cm) ld1 MDM: 18:24 Patient medically screened. cp 19:00 Differential diagnosis: UTI, meningitis, sepsis. cp 20:33 Data reviewed: vital signs, nurses notes, lab test result(s), and as a result, I will cp discharge patient. 20:33 Counseling: I had a detailed discussion with the patient and/or guardian regarding: the cp historical points, exam findings, and any diagnostic results supporting the discharge/admit diagnosis, lab results, the need for outpatient follow up, a urologist, to return to the emergency department if symptoms worsen or persist or if there are any questions or concerns that arise at home. Response to treatment: the patient's symptoms have markedly improved after treatment, patient is well hydrated. 20:34 ED course: VSS. Fever resolved. Benign exam of abdomen. Patient appears non-toxic. Will cp discharge to home for continued monitoring. 02/14 17:23 Order name: Urine Dipstick-Ancillary; Complete Time: 18:08 EDNV 02/14 19:30 Interpretation: Normal except: UKET Trace; UBLD 2+; UPROT 2+; UESTR 2+. cp 02/14 17:24 Order name: Urine Microscopic Only aa5 02/14 17:24 Order name: Urine Culture aa5 02/14 17:25 Order name: Urine Microscopic Only; Complete Time: 18:08 EDMS 02/14 19:30 Interpretation: Normal except: UWBC 20-50; UBACT 20-50. cp 02/14 17:25 Order name: Urine Culture EDNV 02/14 18:55 Order name: Basic Metabolic Panel; Complete Time: 20:29 cp 02/14 20:29 Interpretation: Normal except: CL 109; GFR 78. cp 02/14 18:55 Order name: CBC with Diff; Complete Time: 19:45 cp 02/14 19:45 Interpretation: Normal except: DORIAN% 80.9; LYM% 10.3. cp 02/14 18:55 Order name: Hepatic Function; Complete Time: 20:29 cp 02/14 18:55 Order name: Lipase; Complete Time: 20:29 cp 02/14 18:55 Order name: Procalcitonin; Complete Time: 20:29 cp 02/14 20:31 Order name: SARS-COV-2 RT PCR EDMS 02/14 17:17 Order name: Urine Dipstick-Ancillary (obtain specimen); Complete Time: 17:33 ca1 02/14 18:55 Order name: IV Saline Lock; Complete Time: 19:33 cp 02/14 18:55 Order name: Labs collected and sent; Complete Time: 19:33 cp Administered Medications: 17:18 Drug: Ibuprofen 800 mg Route: PO; ca1 18:30 Follow up: Response: No adverse reaction; Temperature is decreased jl7 19:20 Drug: NS 0.9% 1000 ml Route: IV; Rate: 1 bolus; Site: right antecubital; em 20:32 Follow up: IV Status: Completed infusion; IV Intake: 1000ml em 20:58 Follow up: IV Status: Completed infusion; IV Intake: 1000ml em 20:53 Drug: Ciprofloxacin 500 mg Route: PO; em 20:54 Follow up: Response: Medication administered at discharge. em 20:54 Drug: Rocephin - (cefTRIAXone) 1 grams Route: IVPB; Infused Over: 30 mins; Site: right em antecubital; 20:54 Follow up: Response: Medication administered at discharge.; IV Intake: 10ml em 20:58 Follow up: Response: Medication administered at discharge.; IV Status: Completed em infusion; IV Intake: 10ml Disposition: 02/15 04:53 Co-signature as Attending Physician, Nahid Oliveira MD I agree with the assessment and tw4 plan of care. Disposition: 02/14/21 20:34 Discharged to Home. Impression: Urinary tract infection, site not specified. - Condition is Stable. - Discharge Instructions: Urinary Tract Infection, Adult. - Prescriptions for Ibuprofen 800 mg Oral Tablet - take 1 tablet by ORAL route every 8 hours As needed take with food; 30 tablet. Cipro 500 mg Oral Tablet - take 1 tablet by ORAL route every 12 hours for 10 days; 20 tablet. - Medication Reconciliation Form, Thank You Letter, Antibiotic Education, Prescription Opioid Use form. - Follow up: Lemuel Villar MD; When: 1 week; Reason: Recheck today's complaints. - Problem is new. - Symptoms have improved. Signatures: Dispatcher [employer] EDNV Rj Carroll RN RN em Raffi Schaeffer PA PA cp Nahid Oliveira MD MD tw4 Kisha Hunt RN RN ca1 Lian Mendiola RN RN ld1 Brian Hansen RN jl7 Corrections: (The following items were deleted from the chart) 02/14 19:45 19:26 CORONAVIRUS+ ordered. [facility] EDNV 20:58 20:34 02/14/2021 20:34 Discharged to Home. Impression: Urinary tract infection, site em not specified. Condition is Stable. Forms are Medication Reconciliation Form, Thank You Letter, Antibiotic Education, Prescription Opioid Use. Follow up: Lemuel Villra; When: 1 week; Reason: Recheck today's complaints. Problem is new. Symptoms have improved. cp 21:30 21:29 Constitutional: The patient appears in no acute distress, alert, awake, cp non-diaphoretic, non-toxic, well developed, well nourished, febrile, cp 21:30 21:29 Head/Face: Normocephalic, atraumatic. cp cp 21:30 21:29 Eyes: Periorbital structures: appear normal, Conjunctiva: normal, no exudate, no cp injection, Sclera: no appreciated abnormality, Lids and lashes: appear normal, bilaterally, cp 21:30 21:29 ENT: External ear(s): are unremarkable, Nose: is normal, Mouth: Lips: moist, Oral cp mucosa: pink and intact, moist, Posterior pharynx: Airway: no evidence of obstruction, patent, cp 21:30 21:29 Neck: ROM/movement: is normal, is supple, without pain, no range of motions cp limitations, no meningismus, cp 21:30 21:29 Chest/axilla: Inspection: normal, Palpation: is normal, no crepitus, no cp tenderness, cp
--- NOTE | 2021-02-14 20:34 | ER ---
Nurse's Notes [facility] Name: Catracho Simon Age: 45 yrs Sex: Male : 1975 Arrival Date: 02/14/2021 Time: 17:01 Bed 15 Private MD: Diagnosis: Urinary tract infection, site not specified Presentation: 02/14 17:07 Chief complaint: Patient states: Haven't been eating good, sleeping well, chills, fever ca1 since Tuesday. Denies cough, congestion. Denies N/V/D. Reports burning with urination, urinary urgency and frequency. Took Tylenol, NyQuil, Aspirin at 1515. Coronavirus screen: Client denies travel out of the [place] in the last 14 days. chills, fever, Client presents with at least one sign or symptom that may indicate coronavirus-19. Standard/surgical mask placed on the client. Provider contacted for isolation considerations. Ebola Screen: Patient negative for fever greater than or equal to 101.5 degrees Fahrenheit, and additional compatible Ebola Virus Disease symptoms Patient denies exposure to infectious person. Patient denies travel to an Ebola-affected area in the 21 days before illness onset. No symptoms or risks identified at this time. Initial Sepsis Screen: Does the patient meet any 2 criteria? No. Patient's initial sepsis screen is negative. Does the patient have a suspected source of infection? No. Patient's initial sepsis screen is negative. Risk Assessment: Do you want to hurt yourself or someone else? Patient reports no desire to harm self or others. Onset of symptoms was February 14, 2021. 17:07 Method Of Arrival: Ambulatory ca1 17:07 Acuity: JACOB 3 ca1 Historical: - Allergies: 17:11 No Known Allergies; ca1 - Home Meds: 17:11 None [Active]; ca1 - PMHx: 17:11 None; ca1 - PSHx: 17:11 None; ca1 - Immunization history:: Flu vaccine is not up to date. - Social history:: Smoking status: Patient reports the use of cigarette tobacco products, smokes one-half pack cigarettes per day, Smoking status: Patient reports the use of cigarette tobacco products, smokes one-half pack cigarettes per day, Patient/guardian denies using alcohol. Screenin:26 Abuse screen: Denies threats or abuse. Denies injuries from another. Nutritional ld1 screening: No deficits noted. Tuberculosis screening: No symptoms or risk factors identified. Fall Risk None identified. Assessment: 18:26 General: Appears in no apparent distress. comfortable, Behavior is calm, cooperative, ld1 appropriate for age. Pain: Denies pain. Neuro: Level of Consciousness is awake, alert, obeys commands, Oriented to person, place, time, situation, Appropriate for age. Cardiovascular: Patient's skin is warm and dry. Respiratory: Airway is patent Respiratory effort is even, unlabored, Respiratory pattern is regular, symmetrical. GI: Abdomen is round non-distended. 18:54 Reassessment: No changes from previously documented assessment. Patient and/or family ld1 updated on plan of care and expected duration. Pain level reassessed. Patient is alert, oriented x 3, equal unlabored respirations, skin warm/dry/pink. 19:20 Reassessment: Patient appears in no apparent distress at this time. Patient and/or em family updated on plan of care and expected duration. Pain level reassessed. Patient is alert, oriented x 3, equal unlabored respirations, skin warm/dry/pink. Patient denies pain at this time. 20:20 Reassessment: Patient appears in no apparent distress at this time. Patient and/or em family updated on plan of care and expected duration. Pain level reassessed. Patient is alert, oriented x 3, equal unlabored respirations, skin warm/dry/pink. Vital Signs: 17:07 BP 140 / 85; Pulse 107; Resp 18 S; Temp 102.4(TE); Pulse Ox 96% on R/A; Weight 95.25 kg ca1 (R); Height 5 ft. 7 in. (170.18 cm) (R); 18:24 BP 117 / 78; Pulse 93; Resp 18; Temp 99.9(O); Pulse Ox 97% on R/A; Weight 95.25 kg; dh4 Height 5 ft. 7 in. (170.18 cm); Pain 0/10; 18:26 BP 117 / 78; Pulse 93; Resp 18; Temp 99.9(O); Pulse Ox 97% on R/A; Weight 95.25 kg; ld1 Height 5 ft. 7 in. (170.18 cm); Pain 0/10; 18:54 BP 123 / 77; Pulse 85; Resp 18; Pulse Ox 98% on R/A; Pain 0/10; ld1 19:20 BP 106 / 73; Pulse 71; Resp 19; Pulse Ox 98% on R/A; Pain 0/10; em 20:20 BP 111 / 79; Pulse 86; Resp 19; Pulse Ox 99% on R/A; em 18:26 Body Mass Index 32.89 (95.25 kg, 170.18 cm) ld1 ED Course: 17:01 Patient arrived in ED. as 17:10 Triage completed. ca1 17:11 Arm band placed on right wrist. ca1 18:15 Raffi Schaeffer PA is PHCP. cp 18:15 Anabel Bowden MD is Attending Physician. cp 18:16 Brian Hansen RN is Primary Nurse. jl7 18:19 Urine Culture Sent. jl7 18:19 Urine Microscopic Only Sent. jl7 18:26 Patient has correct armband on for positive identification. Bed in low position. Call ld1 light in reach. Side rails up X2. Pulse ox on. NIBP on. Noise minimized. Lights dimmed. 19:15 Primary Nurse role handed off by Brian aHnsen, MAGALYS sg 19:20 Initial lab(s) drawn, by nd, sent to lab. Inserted saline lock: 20 gauge in right em antecubital area, using aseptic technique. Blood collected. 19:33 Rj Carroll, RN is Primary Nurse. em 19:44 Nahid Oliveira MD is Attending Physician. cp 20:33 Lemuel Villar MD is Referral Physician. cp 20:56 No provider procedures requiring assistance completed. IV discontinued, intact, em bleeding controlled, No redness/swelling at site. Pressure dressing applied. Administered Medications: 17:18 Drug: Ibuprofen 800 mg Route: PO; ca1 18:30 Follow up: Response: No adverse reaction; Temperature is decreased jl7 19:20 Drug: NS 0.9% 1000 ml Route: IV; Rate: 1 bolus; Site: right antecubital; em 20:32 Follow up: IV Status: Completed infusion; IV Intake: 1000ml em 20:58 Follow up: IV Status: Completed infusion; IV Intake: 1000ml em 20:53 Drug: Ciprofloxacin 500 mg Route: PO; em 20:54 Follow up: Response: Medication administered at discharge. em 20:54 Drug: Rocephin - (cefTRIAXone) 1 grams Route: IVPB; Infused Over: 30 mins; Site: right em antecubital; 20:54 Follow up: Response: Medication administered at discharge.; IV Intake: 10ml em 20:58 Follow up: Response: Medication administered at discharge.; IV Status: Completed em infusion; IV Intake: 10ml Intake: 20:32 IV: 1000ml; Total: 1000ml. em 20:54 IV: 10ml; Total: 1010ml. em 20:58 IV: 10ml; Total: 1020ml. em 20:58 IV: 1000ml; Total: 2020ml. em Outcome: 20:34 Discharge ordered by MD. cp 20:56 Discharged to home ambulatory. em 20:56 Condition: good 20:56 Discharge instructions given to patient, Instructed on discharge instructions, follow up and referral plans. medication usage, Demonstrated understanding of instructions, follow-up care, medications, Prescriptions given X 2. 20:58 Patient left the ED. em Addendum: 02/17/2021 18:02 Addendum: Culture Results: Positive urine culture. No further action required. Bacteria s v sensitive to prescribed antibiotic. Signatures: Laura Vazquez RN RN sv Gay, Steven, RN RN sg Munoz, Edgar, RN RN em Martinez, Amelia as Page, Corey, PA PA cp Leal, Jahala, RN RN jl7 Kisha Hunt RN RN ca1 Robinson, Sterling dh4 Lian Mendiola RN RN ld1 Corrections: (The following items were deleted from the chart) 02/14 17:12 17:07 Chief complaint: Patient states: Haven't been eating good, sleeping well, chills, ca1 fever since Tuesday. Denies cough, congestion. Denies N/V/D. Reports burning with urination, urinary urgency and frequency. Took Tylenol, Nyquil, Aspirin at 1515 ca1
[2021-02-14] MEDS ORDERED: CEFTRIAXONE/SWI 1gm 1 GM/10 ML SYR ONE (20:56)
[2021-02-14] MEDS ORDERED: CIPROFLOXACIN HCL 500 MG TAB ONE (20:56)
[2021-02-14 23:16] VITALS: TEMP 99.9
[2021-02-14 23:22] VITALS: BP 111/79; O2SAT 99
== END 2021-02-14 20:58 | disposition home or self-care (01) ==
LOC: ER 16:59
DX: N39.0 Urinary tract infection, site not specified (principal); Z20.822 Contact with and (suspected) exposure to COVID-19; F17.210 Nicotine dependence, cigarettes, uncomplicated
CPT/HCPCS: 36415; 80048; 80076; 81003; 81015; 83690; 84145; 85025; 87077; 87086; 87088; 87186; 96361; 96374; 99284; J0696; J7030; U0003

== ENCOUNTER 2021-07-22 18:11 | Emergency (ER) | payer SELFPAY ==
[2021-07-22 21:39] LABS: Urine Blood Trace-intact (Negative); Urine Glucose Negative (Negative); Urine Protein 2+ (Negative)
[2021-07-22] MEDS ORDERED: ACETAMINOPHEN 500 MG TAB ONE (21:44)
--- NOTE | 2021-07-22 22:16 | RAD REPORT ---
EXAM DESCRIPTION: RAD - Chest Single View - 07/22/2021 10:00 pm CLINICAL HISTORY: FEVER COMPARISON: 10/06/2019 FINDINGS: Lines: None. Lungs: Increased faint bilateral airspace disease. Pleural: No significant pleural effusions or pneumothorax. Cardiac: Cardiomegaly. Bones: No acute fractures. Other: IMPRESSION: Mild faint bilateral opacities could reflect mild pneumonia.
[2021-07-22 22:31] LABS: SARS-COV-2 RT PCR NEGATIVE (NEGATIVE)
[2021-07-22 22:47] LABS: Urine Bacteria <20 /HPF (NONE SEEN)
--- NOTE | 2021-07-22 23:09 | ER ---
Nurse's Notes [facility] Name: Catracho Simon Age: 46 yrs Sex: Male : 1975 Arrival Date: 07/22/2021 Time: 18:13 Bed 9 Private MD: Diagnosis: Pneumonia, unspecified organism Presentation: 07/22 18:35 Chief complaint: Patient states: started last night well about 4 am in the morning. tw2 then all day today i kept getting fever and chills. i took ibuprofen it helped some. i do have bodyaches. also i am having burning with urination. Coronavirus screen: chills, fever, Client presents with at least one sign or symptom that may indicate coronavirus-19. Standard/surgical mask placed on the client. Provider contacted for isolation considerations. Ebola Screen: Patient denies travel to an Ebola-affected area in the 21 days before illness onset. Initial Sepsis Screen: Does the patient meet any 2 criteria? HR > 90 bpm. No. Patient's initial sepsis screen is negative. Does the patient have a suspected source of infection? No. Patient's initial sepsis screen is negative. Risk Assessment: Do you want to hurt yourself or someone else? Patient reports no desire to harm self or others. Onset of symptoms was July 22, 2021. 18:35 Method Of Arrival: Wheelchair tw2 18:35 Acuity: JACOB 3 tw2 Triage Assessment: 18:38 General: Appears in no apparent distress. uncomfortable, Behavior is calm, cooperative, tw2 appropriate for age. Pain: Denies pain. : Reports burning with urination. Historical: - Allergies: 18:38 No Known Allergies; tw2 - Home Meds: 18:38 None [Active]; tw2 - PMHx: 18:38 None; tw2 - PSHx: 18:38 None; tw2 - Immunization history:: Client reports having NOT received the Covid vaccine. - Social history:: Smoking status: Patient reports the use of cigarette tobacco products, smokes one-half pack cigarettes per day. Screenin:12 Abuse screen: Denies threats or abuse. Nutritional screening: No deficits noted. vg1 Tuberculosis screening: No symptoms or risk factors identified. Fall Risk No fall in past 12 months (0 pts). No secondary diagnosis (0 pts). No IV (0 pts). Ambulatory Aid- None/Bed Rest/Nurse Assist (0 pts). Gait- Normal/Bed Rest/Wheelchair (0 pts) Mental Status- Oriented to own ability (0 pts). Total Patterson Fall Scale indicates No Risk (0-24 pts). Assessment: 21:10 Reassessment: Pt states body aches, fever and chills that began this morning. General: vg1 Appears in no apparent distress. uncomfortable, Behavior is calm, cooperative. Pain: Complains of pain in bodyaches Pain currently is 8 out of 10 on a pain scale. Pain began this morning 0400. Neuro: Level of Consciousness is awake, alert, obeys commands, Oriented to person, place, time, situation. Cardiovascular: Patient's skin is warm and dry. Respiratory: Airway is patent Respiratory effort is even, unlabored, Breath sounds are clear bilaterally. Denies cough, shortness of breath. GI: Patient currently denies diarrhea, nausea, vomiting. : Reports burning with urination, today. EENT: No signs and/or symptoms were reported regarding the EENT system. Derm: Skin is intact, is healthy with good turgor. Musculoskeletal: Circulation, motion, and sensation intact. Vital Signs: 18:35 BP 127 / 88; Pulse 105; Resp 18; Temp 98.7(TE); Pulse Ox 98% on R/A; Weight 95.25 kg tw2 (R); Height 5 ft. 5 in. (165.10 cm); Pain 8/10; 21:12 BP 127 / 73; Pulse 97; Resp 18; Temp 100.3(O); Pulse Ox 96% ; vg1 23:26 BP 124 / 74; Pulse 97; Resp 20; Pulse Ox 97% on R/A; kg 18:35 Body Mass Index 34.95 (95.25 kg, 165.10 cm) tw2 ED Course: 18:13 Patient arrived in ED. am2 18:38 Triage completed. tw2 18:38 Arm band placed on. tw2 20:31 Anni Wong, RN is Primary Nurse. vg1 20:50 Andre Barnes PA is PHCP. bb 20:50 Lei Courtney MD is Attending Physician. bb 21:13 Patient has correct armband on for positive identification. Bed in low position. Call vg1 light in reach. 21:24 COVID swab sent to lab. Flu and/or RSV swab sent to lab. vg1 22:00 XRAY Chest (1 view) In Process Unspecified. EDMS 23:27 No provider procedures requiring assistance completed. Patient did not have IV access kg during this emergency room visit. Administered Medications: 21:24 Drug: Tylenol 1000 mg Route: PO; vg1 23:26 Follow up: Response: No adverse reaction kg 23:25 Drug: LevaQUIN (levofloxacin) 750 mg Route: PO; kg 23:26 Follow up: Response: No adverse reaction kg Outcome: 23:09 Discharge ordered by . lai 23:27 Discharged to home ambulatory. kg 23:27 Condition: good 23:27 Discharge instructions given to patient, Instructed on discharge instructions, follow up and referral plans. Demonstrated understanding of instructions, follow-up care, medications. 23:28 Patient left the ED. kg Addendum: 07/26/2021 07:33 Addendum: Culture Results: Positive urine culture. No further action required. Bacteria e b sensitive to prescribed antibiotic. Signatures: Dispatcher [employer] EDMS Belem Mueller RN RN Andre Tolbert PA PA [id number] Juhi Acevedo RN RN tw2 Meredith Bruno Elizabeth eb Garcia, Victoria RN RN vg1 Mary Jo Morley RN RN kg Corrections: (The following items were deleted from the chart) 07/22 21:32 21:10 : No signs and/or symptoms were reported regarding the genitourinary system. [id number]
--- NOTE | 2021-07-22 23:09 | EDPHYS ---
Physician Documentation [facility] Name: Catracho Simon Age: 46 yrs Sex: Male : 1975 Arrival Date: 07/22/2021 Time: 18:13 Bed 9 Private MD: ED Physician Lie Courtney HPI: 07/22 21:50 This 46 yrs old Male presents to ER via Wheelchair with complaints of Fever, jr8 chills, Dizziness. 21:50 This is a 46-year-old male patient that presented emergency room with acute onset of jr8 fever and chills that started shortly before arriving to the emergency room. Stated that he has also noticed some mild burning with urination. Denies cough, shortness of breath, chest pain, nausea vomiting diarrhea, loss of taste or smell. . Historical: - Allergies: 18:38 No Known Allergies; tw2 - Home Meds: 18:38 None [Active]; tw2 - PMHx: 18:38 None; tw2 - PSHx: 18:38 None; tw2 - Immunization history:: Client reports having NOT received the Covid vaccine. - Social history:: Smoking status: Patient reports the use of cigarette tobacco products, smokes one-half pack cigarettes per day. ROS: 21:50 Constitutional: Positive for body aches, chills, fever. jr8 21:50 : Positive for urinary symptoms, burning with urination. 21:50 All other systems are negative. Exam: 21:50 Constitutional: This is a well developed, well nourished patient who is awake, alert, jr8 and in no acute distress. ENT: Nares patent. No nasal discharge, no septal abnormalities noted. Tympanic membranes are normal and external auditory canals are clear. Oropharynx with no redness, swelling, or masses, exudates, or evidence of obstruction, uvula midline. Mucous membranes moist. Cardiovascular: Regular rate and rhythm with a normal S1 and S2. No gallops, murmurs, or rubs. Normal PMI, no JVD. No pulse deficits. Respiratory: Lungs have equal breath sounds bilaterally, clear to auscultation and percussion. No rales, rhonchi or wheezes noted. No increased work of breathing, no retractions or nasal flaring. Abdomen/GI: Soft, non-tender, with normal bowel sounds. No distension or tympany. No guarding or rebound. No evidence of tenderness throughout. Back: No spinal tenderness. No costovertebral tenderness. Full range of motion. Skin: Warm, dry with normal turgor. Normal color with no rashes, no lesions, and no evidence of cellulitis. MS/ Extremity: Pulses equal, no cyanosis. Neurovascular intact. Full, normal range of motion. Neuro: Awake and alert, GCS 15, oriented to person, place, time, and situation. Cranial nerves II-XII grossly intact. Motor strength 5/5 in all extremities. Sensory grossly intact. Vital Signs: 18:35 BP 127 / 88; Pulse 105; Resp 18; Temp 98.7(TE); Pulse Ox 98% on R/A; Weight 95.25 kg tw2 (R); Height 5 ft. 5 in. (165.10 cm); Pain 8/10; 21:12 BP 127 / 73; Pulse 97; Resp 18; Temp 100.3(O); Pulse Ox 96% ; vg1 23:26 BP 124 / 74; Pulse 97; Resp 20; Pulse Ox 97% on R/A; kg 18:35 Body Mass Index 34.95 (95.25 kg, 165.10 cm) tw2 MDM: 21:00 Patient medically screened. jr8 23:07 Data reviewed: vital signs, nurses notes, lab test result(s), radiologic studies, plain jr8 films. Data interpreted: Pulse oximetry: on room air is 96 %. Interpretation: normal. Counseling: I had a detailed discussion with the patient and/or guardian regarding: the historical points, exam findings, and any diagnostic results supporting the discharge/admit diagnosis, lab results, radiology results, the need for outpatient follow up, a family practitioner, to return to the emergency department if symptoms worsen or persist or if there are any questions or concerns that arise at home. 23:08 ED course: Discussed with patient that he had some mild white cell in his urine. No jr8 bacteria but we will culture the urine. Chest x-ray shows suspicious findings for pneumonia that coupled with the fever indicates need for further treatment. Will start patient on Levaquin and have him follow-up with his PCP in the next couple days. Patient knows to come back if he were to feel worse.. 07/22 21:19 Order name: Flu jr8 07/22 21:19 Order name: COVID-19 : Document "Date of Symptom Onset" if Symptomatic. jr8 07/22 21:38 Order name: Urine Microscopic Only jr8 07/22 21:38 Order name: Urine Dipstick-Ancillary; Complete Time: 21:52 EDMS 07/22 21:19 Order name: XRAY Chest (1 view); Complete Time: 22:31 jr8 07/22 21:38 Order name: Urine Microscopic Only; Complete Time: 23:07 EDMS 07/22 22:32 Order name: COVID-19/FLU A+B; Complete Time: 23:07 EDMS 07/22 22:48 Order name: Urine Culture EDMS Administered Medications: 21:24 Drug: Tylenol 1000 mg Route: PO; vg1 23:26 Follow up: Response: No adverse reaction kg 23:25 Drug: LevaQUIN (levofloxacin) 750 mg Route: PO; kg 23:26 Follow up: Response: No adverse reaction kg Disposition: 07/23 01:29 Co-signature as Attending Physician, Lei Courtney MD I agree with the assessment and rn plan of care. Attestation: The patient's history, exam findings, diagnostics, and a summary of any interventions or procedures was reviewed in detail with Andre GONZALES. Disposition Summary: 07/22/21 23:09 Discharge Ordered Location: Home jr Problem: new jr8 Symptoms: have improved jr8 Condition: Stable jr8 Diagnosis - Pneumonia, unspecified organism jr8 Followup: jr8 - With: Private Physician - When: 2 - 3 days - Reason: Recheck today's complaints, Continuance of care, Re-evaluation by your physician Discharge Instructions: - Discharge Summary Sheet jr8 - Community-Acquired Pneumonia, Adult jr8 Forms: - Medication Reconciliation Form jr8 - Thank You Letter jr8 - Antibiotic Education jr8 - Prescription Opioid Use jr8 Prescriptions: - levofloxacin 500 mg Oral Tablet - take 1 tablet by ORAL route once daily for 7 days; 7 tablet; Refills: 0, jr8 Product Selection Permitted Signatures: Dispatcher [employer] EDLei Cabezas MD MD rn Roszak, Josh, PA PA jr8 Juhi Acevedo RN RN tw2 Anni Wong RN RN vg1 Mary Jo Morley RN RN kg Corrections: (The following items were deleted from the chart) 07/22 21:30 21:20 Influenza Screen (A ordered. EDMS EDMS 21:20 CORONAVIRUS ordered. EDMS EDMS
[2021-07-22 23:38] VITALS: TEMP 100.3
[2021-07-22 23:39] VITALS: BP 124/74; O2SAT 97
[2021-07-22] MEDS ORDERED: levoFLOXacin 750 MG TAB ONE (23:43)
== END 2021-07-22 23:28 | disposition home or self-care (01) ==
LOC: ER 18:11
DX: J16.8 Pneumonia due to other specified infectious organisms (principal); Z20.822 Contact with and (suspected) exposure to COVID-19; F17.210 Nicotine dependence, cigarettes, uncomplicated
CPT/HCPCS: 0240U; 71045; 81003; 81015; 87077; 87086; 87088; 87186; 99283

== ENCOUNTER 2023-06-21 18:14 | Emergency (ER) | payer SELFPAY ==
--- NOTE | 2023-06-21 20:10 | RAD REPORT ---
EXAM DESCRIPTION: CT - CTHCSPWOC - 06/21/2023 7:38 pm CLINICAL HISTORY: HEADACHE COMPARISON: Head C Spine Mpr Wo Con dated 10/06/2019 TECHNIQUE: Axial thin cut noncontrast CT images of the head were obtained. Axial thin cut noncontrast CT images of the cervical spine were obtained. Multiplanar reformatted images were generated and reviewed. All CT scans are performed using dose optimization technique as appropriate and may include automated exposure control or mA/KV adjustment according to patient size. FINDINGS: CT HEAD WITHOUT CONTRAST: No acute hemorrhage, hydrocephalus or extra-axial collection is identified.No areas of brain edema or midline shift. The paranasal sinuses and mastoids are clear.The calvarium is intact. Mild left temporalis fossa swelling with skin sutures in place. CT CERVICAL SPINE WITHOUT CONTRAST: No fracture or subluxation.No prevertebral soft tissues swelling is identified. IMPRESSION: No acute traumatic intracranial or cervical spine findings. Mild left temporalis fossa swelling with skin sutures in place.
--- NOTE | 2023-06-21 20:14 | RAD REPORT ---
EXAM DESCRIPTION: CT - CTFB CLINICAL HISTORY: left jaw pain COMPARISON: Head C Spine Mpr Wo Con dated 06/21/2023 TECHNIQUE: Axial noncontrast 2 mm thick images of the face were obtained with sagittal and coronal r econstruction images. All CT scans are performed using dose optimization technique as appropriate and may include automated exposure control or mA/KV adjustment according to patient size. FINDINGS: No acute facial bone fracture is seen.The mandible is intact. The globes and orbital contents are grossly unremarkable. Moderate left maxillary sinus polypoidal mucosal thickening. [id number] scattered mucosal thick ening throughout the ethmoidal air cells. Well marginated lucent cystic lesion involving the roots of the left maxillary posterior-most 2 molar s, with a cortical defect communicating with the left maxillary antrum. IMPRESSION: Negative for facial bone fracture. Well-marginated left maxillary lucent lesion surrounding roots of the posterior-most 2 molars, commu nicating with the left maxillary antrum, may represent a dentigerous or radicular cyst.
[2023-06-21] MEDS ORDERED: ACETAMINOPHEN 500 MG TAB ONE (20:23)
[2023-06-21 20:52] LABS: Absolute Lymphocytes (CBC) 1.7 K/uL (0.7-4.9); Hematocrit 45.2 % (39.6-49.0); Lymphocytes % 26.6 % (15.3-44.8); MCV 93.8 fL (80-100); MPV 7.5 fL (7.6-11.3); Platelets 199 thou/uL (152-406); RBC Red Blood Cell Count 4.81 M/uL (4.33-5.43)
[2023-06-21] MEDS ORDERED: dexAMETHasone 10 MG/ML VIAL ONE (20:55)
[2023-06-21] MEDS ORDERED: DIPHENHYDRAMINE 50 MG/ML VIAL ONE (20:55)
[2023-06-21] MEDS ORDERED: NA CHLORIDE 0.9% 1,000 ML ONE (20:55)
[2023-06-21] MEDS ORDERED: METOCLOPRAMIDE 10 MG/2mL INJ ONE (20:55)
[2023-06-21] MEDS ORDERED: KETOROLAC 30 MG/ML INJ ONE (21:03)
[2023-06-21 21:06] LABS: Potassium 3.8 mEq/L (3.5-5.1)
--- NOTE | 2023-06-21 21:48 | EDPHYS ---
Physician Documentation [facility] Name: Catracho Simon Age: 48 yrs Sex: Male : 1975 Arrival Date: 06/21/2023 Time: 18:14 Bed 8 Private MD: ED Physician Kel Lawson HPI: 06/21 19:00 This 48 yrs old Male presents to ER via Ambulatory with complaints of Head cp Injury-Adult, Dizziness, Headache. 19:00 Patient is a 48-year-old male with no significant past medical history who presents to the emergency department with complaints of headache, dizziness. Patient reports over this past weekend while working out of town he was struck on the left side of the head by a metal part of a piece of rope. Patient does not report any loss of consciousness with reports he did go to the ground after being hit in the head and felt like he was going to pass out. Patient was taken to a local hospital in [place] where the incident occurred and reports she had rigo placed to the left side of his head and some testing done. Patient was released to go home and has not returned to work at this point and complains of continued headache, dizziness and nausea. Historical: - Allergies: 18:43 No Known Allergies; bp - PMHx: 18:43 None; bp - PSHx: 18:43 None; bp - Immunization history:: Client reports having NOT received the Covid vaccine. - Social history:: Smoking status: Patient reports the use of cigarette tobacco products, smokes one-half pack cigarettes per day. ROS: 19:05 Constitutional: Negative for body aches, chills, fever, poor PO intake. cp 19:05 Eyes: Negative for injury, pain, redness, and discharge. cp 19:05 Neck: Positive for tenderness, Negative for stiffness. 19:05 Cardiovascular: Negative for chest pain, palpitations. 19:05 Respiratory: Negative for cough, shortness of breath, wheezing. 19:05 Abdomen/GI: Positive for nausea, Negative for abdominal pain, vomiting, diarrhea, constipation. 19:05 Back: Negative for pain at rest, pain with movement. 19:05 Neuro: Positive for dizziness, headache, Negative for altered mental status, loss of consciousness, syncope, weakness. 19:05 All other systems are negative. Exam: 19:10 Constitutional: The patient appears in no acute distress, alert, awake, cp non-diaphoretic, non-toxic, well developed, well nourished, uncomfortable. 19:10 Head/face: Noted is swelling, that is mild, of the left uatsdin, repaired laceration cp noted to left uatsdin with rigo in place. 19:10 Eyes: Periorbital structures: appear normal, Pupils: equal, round, and reactive to light and accomodation, Extraocular movements: intact throughout, Conjunctiva: normal, no exudate, no injection, Sclera: no appreciated abnormality, Lids and lashes: appear normal, bilaterally. 19:10 ENT: External ear(s): are unremarkable, Ear canal(s): are normal, clear, TM's: dullness, bilaterally, Nose: is normal, Mouth: Lips: moist, Oral mucosa: pink and intact, moist, Posterior pharynx: is normal, airway is patent, no erythema, no exudate. 19:10 Neck: External neck: tenderness, that is mild, of the left mid cervical area, left trapezius and lower cervical area, ROM/movement: limited range of motion, is not appreciated, nuchal rigidity, is not appreciated. 19:10 Chest/axilla: Inspection: normal, Palpation: is normal, no crepitus, no tenderness. 19:10 Cardiovascular: Rate: normal, Rhythm: regular. 19:10 Respiratory: the patient does not display signs of respiratory distress, Respirations: normal, no use of accessory muscles, no retractions, labored breathing, is not present, Breath sounds: are clear throughout, no decreased breath sounds. 19:10 Abdomen/GI: Inspection: abdomen appears normal, Palpation: abdomen is soft and non-tender, in all quadrants. 19:10 Back: pain, is absent, ROM is normal, vertebral tenderness, is not appreciated. 19:10 Neuro: Orientation: to person, place \T\ time. Mentation: is normal, Cerebellar function: is grossly normal, Motor: moves all fours, strength is normal, Sensation: is normal. Vital Signs: 18:38 BP 146 / 92; Pulse 73; Resp 18; Temp 98.8(O); Pulse Ox 98% on R/A; Weight 88 kg; Height bp 5 ft. 0 in. ; Pain 9/10; 20:45 BP 120 / 70; Pulse 79; Resp 16; Pulse Ox 99% on R/A; jb4 22:32 BP 127 / 80; Pulse 60; Resp 16; Pulse Ox 98% on R/A; pf1 18:38 Body Mass Index 37.89 (88.00 kg, 152.4 cm) bp 18:38 Pain Scale: Adult bp [place] Coma Score: 21:30 Eye Response: spontaneous(4). Motor Response: obeys commands(6). Verbal Response: pf1 oriented(5). Total: 15. MDM: 18:47 Patient medically screened. cp 21:00 Differential diagnosis: Contusion of Hematoma on Intracranial bleed- Concussion cp cerebral contusion. 21:46 Data reviewed: vital signs, nurses notes, lab test result(s), radiologic studies. 21:46 I considered the following discharge prescriptions or medication management in the emergency department Medications were administered in the Emergency Department. See MAR. Counseling: I had a detailed discussion with the patient and/or guardian regarding: the historical points, exam findings, and any diagnostic results supporting the discharge/admit diagnosis, lab results, radiology results, the need for outpatient follow up, a neurologist, to return to the emergency department if symptoms worsen or persist or if there are any questions or concerns that arise at home. Special discussion: Based on the patient's history, exam and DX evaluation, there is no indication for emergent intervention or inpatient TX. It is understood by the patient/guardian that if the SXs persist or worsen they need to return immediately for re-evaluation. 06/21 20:12 Order name: Basic Metabolic Panel; Complete Time: 21:49 06/21 20:12 Order name: CBC with Diff; Complete Time: 21:49 06/21 21:49 Interpretation: Normal except: MPV 7.5; BASO% 1.4. 06/21 20:12 Order name: Type And Screen 06/21 18:47 Order name: CT Head C Spine; Complete Time: 20:11 06/21 20:11 Interpretation: Reviewed report. 06/21 18:47 Order name: CT Facial Bones W/O Con; Complete Time: 20:47 06/21 20:12 Order name: Labs collected and sent; Complete Time: 20:41 Administered Medications: 20:41 Drug: Acetaminophen PO 1000 mg Route: PO; jb4 22:37 Follow up: Response: No adverse reaction; Marked relief of symptoms pf1 20:55 Drug: NS 0.9% IV 1000 ml Route: IV; Rate: 1 bolus; Site: right antecubital; jb4 22:37 Follow up: Response: No adverse reaction; Marked relief of symptoms; IV Status: pf1 Completed infusion; IV Intake: 1000ml 20:55 Drug: Ketorolac IVP 15 mg Route: IVP; Site: right antecubital; jb4 21:50 Follow up: Response: No adverse reaction; Marked relief of symptoms pf1 20:55 Drug: Decadron - Dexamethasone IVP 10 mg Route: IVP; Site: right antecubital; jb4 21:50 Follow up: Response: No adverse reaction; Marked relief of symptoms pf1 20:55 Drug: diphenhydrAMINE IVP 25 mg Route: IVP; Site: right antecubital; jb4 21:50 Follow up: Response: No adverse reaction; Marked relief of symptoms pf1 20:56 Drug: metoCLOPramide IVP 10 mg Route: IVP; Site: right antecubital; jb4 21:50 Follow up: Response: No adverse reaction; Marked relief of symptoms pf1 Disposition Summary: 06/21/23 21:47 Discharge Ordered Location: Home cp Problem: new cp Symptoms: have improved cp Condition: Stable cp Diagnosis - Concussion without loss of consciousness cp Followup: cp - With: Benny Lucero MD - When: 2 - 3 days - Reason: Recheck today's complaints Discharge Instructions: - Discharge Summary Sheet cp - Concussion, Adult cp - Head Injury, Adult cp Forms: - Medication Reconciliation Form cp - Thank You Letter cp - Antibiotic Education cp - Prescription Opioid Use cp - Patient Portal Instructions cp Prescriptions: - Fioricet 50-300-40 mg Oral capsule - take 1 capsule by ORAL route every 4 to 6 hours as needed for pain; 20 capsule; cp Refills: 0, Product Selection Permitted - Ibuprofen 800 mg Oral Tablet - take 1 tablet by ORAL route every 8 hours As needed take with food; 30 tablet; cp Refills: 0, Product Selection Permitted - Zofran 4 mg Oral Tablet - take 1 tablet by ORAL route every 12 hours As needed; 20 tablet; Refills: 0, cp Product Selection Permitted Signatures: Dispatcher [employer] EDMS Page, Raffi, PA PA cp Darian, Terrence, RN RN jb4 Emmanuel Correa RN RN bp Mary Ledesma RN pf1
--- NOTE | 2023-06-21 21:48 | ER ---
Nurse's Notes [facility] Name: Catracho Simon Age: 48 yrs Sex: Male : 1975 Arrival Date: 06/21/2023 Time: 18:14 Bed 8 Private MD: Diagnosis: Concussion without loss of consciousness Presentation: 06/21 18:38 Chief complaint: Patient states: Pt was in [place], had a work injury, was hit in bp the head with a metal ring. Has had headache and dizziness ever since along with left jaw pain. Has taken OTC meds with no relief, tylenol was taken last about 6 hours ago. Has a couple rigo in place per his report. Coronavirus screen: Vaccine status: Patient reports being unvaccinated. Ebola Screen: Patient denies travel to an Ebola-affected area in the 21 days before illness onset. Initial Sepsis Screen: Does the patient meet any 2 criteria? No. Patient's initial sepsis screen is negative. Does the patient have a suspected source of infection? No. Patient's initial sepsis screen is negative. Risk Assessment: Do you want to hurt yourself or someone else? Patient reports no desire to harm self or others. Onset of symptoms was June 18, 2023. 18:38 Method Of Arrival: Ambulatory bp 18:38 Acuity: JACOB 3 bp Historical: - Allergies: 18:43 No Known Allergies; bp - PMHx: 18:43 None; bp - PSHx: 18:43 None; bp - Immunization history:: Client reports having NOT received the Covid vaccine. - Social history:: Smoking status: Patient reports the use of cigarette tobacco products, smokes one-half pack cigarettes per day. Screenin:[facility] ED Fall Risk Assessment (Adult) History of falling in the last 3 months, pf1 including since admission No falls in past 3 months (0 pts) Confusion or Disorientation No (0 pts) Intoxicated or Sedated No (0 pts) Impaired Gait Yes (1 pt) Mobility Assist Device Used No (0 pt) Altered Elimination No (0 pt) Score/Fall Risk Level 0 - 2 = Low Risk Oriented to surroundings, Maintained a safe environment, Educated pt \T\ family on fall prevention, incl call for assistance when getting out of bed, Assessed \T\ reinforced patient's understanding of fall precautions, Provided non-skid footwear, Hourly rounding (assess needs \T\ fall precautionary measures) done, Used ambulatory aids as needed (educated on \T\ assisted with), Used gait belt as appropriate. Abuse screen: Denies threats or abuse. Nutritional screening: No deficits noted. Tuberculosis screening: No symptoms or risk factors identified. Assessment: 20:30 General: Appears in no apparent distress. comfortable, Behavior is calm, cooperative, jb4 appropriate for age. Pain: Complains of pain in headache Pain does not radiate. Pain currently is 9 out of 10 on a pain scale. Neuro: Level of Consciousness is awake, alert, obeys commands, Oriented to person, place, time, situation. Cardiovascular: Patient's skin is warm and dry. Respiratory: Airway is patent Respiratory effort is even, unlabored, Respiratory pattern is regular, symmetrical. GI: No signs and/or symptoms were reported involving the gastrointestinal system. : No signs and/or symptoms were reported regarding the genitourinary system. EENT: No signs and/or symptoms were reported regarding the EENT system. Derm: Skin is intact, Skin is pink, warm \T\ dry. Musculoskeletal: Circulation, motion, and sensation intact. Range of motion: intact in all extremities. Vital Signs: 18:38 BP 146 / 92; Pulse 73; Resp 18; Temp 98.8(O); Pulse Ox 98% on R/A; Weight 88 kg; Height bp 5 ft. 0 in. ; Pain 9/10; 20:45 BP 120 / 70; Pulse 79; Resp 16; Pulse Ox 99% on R/A; jb4 22:32 BP 127 / 80; Pulse 60; Resp 16; Pulse Ox 98% on R/A; pf1 18:38 Body Mass Index 37.89 (88.00 kg, 152.4 cm) bp 18:38 Pain Scale: Adult bp [place] Coma Score: 21:30 Eye Response: spontaneous(4). Motor Response: obeys commands(6). Verbal Response: pf1 oriented(5). Total: 15. ED Course: 18:18 Patient arrived in ED. mg5 18:25 Raffi Schaeffer PA is PHCP. cp 18:25 Kel Lawson MD is Attending Physician. cp 18:43 Triage completed. bp 18:45 Arm band placed on right wrist. bp 18:46 C-collar applied. bp 19:40 CT Head C Spine In Process Unspecified. EDMS 19:40 CT Facial Bones W/O Con In Process Unspecified. EDMS 20:11 Terrence Farmer, RN is Primary Nurse. jb4 20:30 Initial lab(s) drawn, by me, sent to lab. Inserted saline lock: 20 gauge in right jb4 antecubital area, using aseptic technique. Blood collected. 21:20 Patient has correct armband on for positive identification. Bed in low position. Call pf1 light in reach. Side rails up X2. Provided Education on: medication administration. 21:46 Benny Lucero MD is Referral Physician. cp 22:31 No provider procedures requiring assistance completed. IV discontinued, intact, pf1 bleeding controlled, No redness/swelling at site. Pressure dressing applied. Administered Medications: 20:41 Drug: Acetaminophen PO 1000 mg Route: PO; jb4 22:37 Follow up: Response: No adverse reaction; Marked relief of symptoms pf1 20:55 Drug: NS 0.9% IV 1000 ml Route: IV; Rate: 1 bolus; Site: right antecubital; jb4 22:37 Follow up: Response: No adverse reaction; Marked relief of symptoms; IV Status: pf1 Completed infusion; IV Intake: 1000ml 20:55 Drug: Ketorolac IVP 15 mg Route: IVP; Site: right antecubital; jb4 21:50 Follow up: Response: No adverse reaction; Marked relief of symptoms pf1 20:55 Drug: Decadron - Dexamethasone IVP 10 mg Route: IVP; Site: right antecubital; jb4 21:50 Follow up: Response: No adverse reaction; Marked relief of symptoms pf1 20:55 Drug: diphenhydrAMINE IVP 25 mg Route: IVP; Site: right antecubital; jb4 21:50 Follow up: Response: No adverse reaction; Marked relief of symptoms pf1 20:56 Drug: metoCLOPramide IVP 10 mg Route: IVP; Site: right antecubital; jb4 21:50 Follow up: Response: No adverse reaction; Marked relief of symptoms pf1 Medication: 22:32 VIS not applicable for this client. pf1 Intake: 22:37 IV: 1000ml; Total: 1000ml. pf1 Outcome: 21:47 Discharge ordered by . cp 22:31 Discharged to home ambulatory, with family. pf1 22:31 Condition: improved 22:31 Discharge instructions given to patient, family, Instructed on discharge instructions, follow up and referral plans. Demonstrated understanding of instructions, follow-up care, medications, Prescriptions given X 3. 22:34 Patient left the ED. pf1 Signatures: Dispatcher [employer] EDMS Raffi Schaeffer PA PA cp Bryson, James, RN RN jb4 Emmanuel Correa RN RN Mary Moore RN RN pf1 Lucinda Carlisle mg5
[2023-06-21 23:22] VITALS: TEMP 98.8
[2023-06-21 23:26] VITALS: BP 127/80; O2SAT 98
== END 2023-06-21 22:34 | disposition home or self-care (01) ==
LOC: ER 18:14
DX: S06.0X0A Concussion without loss of consciousness, initial encounter (principal); F17.210 Nicotine dependence, cigarettes, uncomplicated
CPT/HCPCS: 36415; 70450; 70486; 72125; 76377; 80048; 85025; 86850; 86900; 86901; J1100; J1200; J2765; J7030

== ENCOUNTER 2024-05-01 15:52 | Emergency (ER) | payer SELFPAY ==
--- OUTSIDE RECORDS SUMMARY | 2024-05-01 15:55 | XMS REPORT | Continuity of Care Document ---
Author Name Unknown Address [address] [facility] [address] [id number] [facility] thconnect Address [address] [facility]. [address] [place] [address] Care Team Providers Care Arm Maker Name Role Phone Unavailable Unavailable Unavailable Encounters Start Date/Time End Date/Time Encounter Type Admission Type Attending Clinicians Care Facility Care Department Encounter ID Source 2024-04-27 09:48:04 2024-04-27 09:48:04 Outpatient [facility] SFA [id number] Morgan Otero 2024-04-26 14:50:22 2024-04-26 14:50:22 Outpatient SFA SFA [id number] Morgan Otero 2023-09-01 15:20:42 2023-09-01 15:20:42 Outpatient SFA SFA [id number] Morgan Otero Results Test Description Test Time Test Comments Results Result Co mments Source LIPID [id number] 04:48:35* Test Item Value Reference Range Interpretation Comme nts CHOLESTEROL (test code = 2210) 208 MG/DL <200 H TRIGLYCERIDES (test code = 2232) 154 MG/DL <150 H HDL CHOLESTEROL (test code = 2220) 42 MG/DL >39 CALC LDL CHOL (test code = 2237) 137 MG/DL <100 H NOTE: CALCULATED LDL IS BASED ON GARETT-CALIXTO METHOD WHICHINCLUDES ADJUSTABLE TRIGLYCERIDE:VLDL CHOLESTEROL RATIO.THIS FACTOR VARIES BY MEASURED TRIGLYCERIDE AND NON-HDLCHOLESTEROL CONCENTRATIONS WITH INCREASED CALCULATED LDL SEENIN HIGHER TRIGLYCERIDE OR LOWER NON-HDL SPECIMENS. FOR MOREINFORMATION, SEE CLIENT ANNOUNCEMENT AT [email or web address] [email or web address] RATIO LDL/HDL (test code = 2238) 3.26 RATIO <3.55 HEMOGLOBIN [id number] 03:59:08* Test Item Value Reference Range Interpretation Comme nts HEMOGLOBIN A1c (test code = 06953) 5.8 % 4.2-5.6 H [employer] GUIDELINES FOR HGB A1C: PREDIABETES/INCREASED RISK . . . . . . . 5.7-6.4% DIAGNOSIS OF DIABETES . . . . . . . . . >=6.5% WITH CONFIRMATION OR APPROPRIATE SYMPTOMS NOTE: ASSAY MAY BE AFFECTED BY HEMOGLOBINOPATHIES (SICKLE CELL ANEMIA, S-C DISEASE, OTHERS) OR ARTIFICIALLY LOWERED BY DECREASED RED CELL SURVIVAL (HEMOLYTIC ANEMIAS, BLOOD LOSS, ETC.). CONSIDER ALTERNATE TESTING OR LABORATORY CONSULTATION. UNLESS OTHERWISE INDICATED, ALL TESTING PERFORMED AT [facility] [address] [place] [id number] CONDITIONER TUMBLER: MACKENZIE ALBERTS M.D. [place] NUMBER [id number] [facility] [place]. [id number] CBC W/AUTO DIFF WITH [id number] 03:32:32* Test Item Value Reference Range Interpretation Comme nts WBC (test code = 1001) 7.3 K/UL 3.5-11.0 RBC (test code = 1002) 5.17 M/UL 4.50-6.10 HEMOGLOBIN (test code = 1003) 16.4 G/DL 13.5-17.0 HEMATOCRIT (test code = 1004) 46.9 % 40.0-51.0 MCV (test code = 1005) 90.7 fL 80.0-99.0 MCH (test code = 1006) 31.7 PG 25.0-33.0 MCHC (test code = 1007) 35.0 G/DL 31.0-36.0 RDW (test code = 1038) 13.4 % 11.5-15.0 NEUTROPHILS (test code = 1008) 61.1 % LYMPHOCYTES (test code = 1010) 27.1 % MONOCYTES (test code = 1011) 7.7 % EOSINOPHILS (test code = 1012) 3.1 % BASOPHILS (test code = 1013) 0.7 % IMMATURE GRANULOCYTES (test code = 1036) 0.3 % NUCLEATED RBCS (test code = 1065) 0.0 /100 WBC'S See_Comment [Automated [employer]] The system which generated this result transmitted reference range: 0.0. The reference range was not used to interpret this result as normal/abnormal. PLATELET COUNT (test code = 1015) 210 K/UL 130-400 ABSOLUTE NEUTROPHILS (test code = 1066) 4.47 K/UL 1.50-7.50 ABSOLUTE LYMPHOCYTES (test code = 1067) 1.98 K/UL 1.00-4.00 ABSOLUTE MONOCYTES (test code = 1068) 0.56 K/UL 0.20-1.00 ABSOLUTE EOSINOPHILS (test code = 1040) 0.23 K/UL 0.00-0.50 ABSOLUTE BASOPHILS (test code = 1069) 0.05 K/UL 0.00-0.20 ABS IMMATURE GRANULOCYTES (test code = 1020) 0.02 K/UL 0.00-0.10 ABS NUCLEATED RBCS (test code = 81978) 0.00 K/UL 0.00-0.11
[2024-05-01] MEDS ORDERED: predniSONE 20 MG TAB ONE (16:24)
[2024-05-01] MEDS ORDERED: FAMOTIDINE 20 MG TAB ONE (16:24)
[2024-05-01 17:24] VITALS: BP 167/101; TEMP 97.2; O2SAT 95
--- NOTE | 2024-05-01 18:12 | EDPHYS ---
Physician Documentation [facility] Name: Catracho Simon Age: 49 yrs Sex: Male : 1975 Arrival Date: 05/01/2024 Time: 15:52 Bed 10 Private MD: ED Physician Michel Brown HPI: 05/01 19:30 This 49 yrs old Male presents to ER via Ambulatory with complaints of Poison kb Vanessa. 19:30 Pt is a 49 year old male who presents for rash to bilateral upper extremities for one kb week after contact with poison vanessa. No relief with OTC creams. c/o itching and swelling. Historical: - Allergies: 16:05 No Known Allergies; ll1 - PMHx: 16:05 None; ll1 - PSHx: 16:05 None; ll1 - Immunization history:: Adult Immunizations up to date. - Infectious Disease History:: Denies. - Social history:: Smoking status: Patient denies any tobacco usage or history of. ROS: 19:30 Constitutional: As per HPI kb Exam: 19:30 Constitutional: This is a well developed, well nourished patient who is awake, alert, kb and in no acute distress. Head/Face: Normocephalic, atraumatic. ENT: Moist Mucous membranes Cardiovascular: Regular rate Respiratory: Respirations even and unlabored. No increased work of breathing. Talking in full sentences MS/ Extremity: Pulses equal, no cyanosis. Neurovascular intact. Full, normal range of motion. Neuro: Awake and alert, GCS 15, oriented to person, place, time, and situation. Moves all extremities. Normal gait. 19:30 Skin: rash a moderate rash is noted, consistent with contact dermatitis, on the right arm and left arm, Vital Signs: 16:04 BP 167 / 101; Pulse 74; Resp 17; Temp 97.2; Pulse Ox 95% ; Weight 96.62 kg; Height 5 ll1 ft. 5 in. ; Pain 3/10; 16:04 Body Mass Index 35.44 (96.62 kg, 165.1 cm) ll1 16:04 Pain Scale: Adult ll1 MDM: 15:54 Patient medically screened. kb 19:31 Differential diagnosis: contact dermatitis, urticaria, impetigo. Data reviewed: vital kb signs, nurses notes. Counseling: I had a detailed discussion with the patient and/or guardian regarding the historical points, exam findings, and any diagnostic results supporting the discharge/admit diagnosis, the need for outpatient follow up, a family practitioner, to return to the emergency department if symptoms worsen or persist or if there are any questions or concerns that arise at home. Administered Medications: 16:29 Drug: predniSONE PO 40 mg PO once Route: PO; as6 16:29 Follow up: Response: Medication administered at discharge. as6 16:29 Drug: Famotidine PO 20 mg PO once Route: PO; as6 16:29 Follow up: Response: Medication administered at discharge. as6 Disposition Summary: 05/01/24 16:06 Discharge Ordered Notes: Location: Home kb Condition: Stable kb Diagnosis - Allergic contact dermatitis due to plants, except food kb Followup: kb - With: Emergency Department - When: As needed - Reason: Worsening of condition Followup: kb - With: Private Physician - When: 2 - 3 days - Reason: Recheck today's complaints, Continuance of care, Re-evaluation by your physician Discharge Instructions: - Discharge Summary Sheet kb - Poison Vanessa Dermatitis, [id number] kb - Contact Dermatitis, [id number] kb Forms: - Medication Reconciliation Form kb - Antibiotic Education kb - Prescription Opioid Use kb - Patient Portal Instructions kb - Leadership Thank You Letter kb Prescriptions: - Pepcid 20 mg Oral Tablet - take 1 tablet ORAL route every 12 hours for 5 days; 10 tablet; Refills: 0, kb Product Selection Permitted - Prednisone 20 mg Oral Tablet - take 1 tablet ORAL route once daily for 5 days; 5 tablet; Refills: 0, Product kb Selection Permitted Signatures: Sharita Chapa FNP-C FNP-Tal Killian, RN RN ll1 Ajay Castellanos, RN RN as6
--- NOTE | 2024-05-01 18:12 | ER ---
Nurse's Notes [facility] Name: Catracho Simon Age: 49 yrs Sex: Male : 1975 Arrival Date: 05/01/2024 Time: 15:52 Bed 10 Private MD: Diagnosis: Allergic contact dermatitis due to plants, except food Presentation: 05/01 16:04 Chief complaint: Patient states: Rash with itching spreading throughout arms for 1 ll1 week. Coronavirus screen: Client denies travel out of the [place] in the last 14 days. At this time, the client does not indicate any symptoms associated with coronavirus-19. Ebola Screen: Patient denies travel to an Ebola-affected area in the 21 days before illness onset. Initial Sepsis Screen: Does the patient meet any 2 criteria? No. Patient's initial sepsis screen is negative. Does the patient have a suspected source of infection? No. Patient's initial sepsis screen is negative. Risk Assessment: Do you want to hurt yourself or someone else? Patient reports no desire to harm self or others. 16:04 Method Of Arrival: Ambulatory ll1 16:04 Acuity: JACOB 4 ll1 16:06 Onset of symptoms was April 25, 2024. ll1 Historical: - Allergies: 16:05 No Known Allergies; ll1 - PMHx: 16:05 None; ll1 - PSHx: 16:05 None; ll1 - Immunization history:: Adult Immunizations up to date. - Infectious Disease History:: Denies. - Social history:: Smoking status: Patient denies any tobacco usage or history of. Screenin:30 [facility] ED Fall Risk Assessment (Adult) History of falling in the last 3 months, as6 including since admission No falls in past 3 months (0 pts) Confusion or Disorientation No (0 pts) Intoxicated or Sedated No (0 pts) Impaired Gait No (0 pts) Mobility Assist Device Used No (0 pt) Altered Elimination No (0 pt) Score/Fall Risk Level 0 - 2 = Low Risk Oriented to surroundings, Maintained a safe environment, Educated pt \T\ family on fall prevention, incl call for assistance when getting out of bed, Assessed \T\ reinforced patient's understanding of fall precautions. Abuse screen: Denies threats or abuse. Denies injuries from another. Nutritional screening: No deficits noted. Tuberculosis screening: No symptoms or risk factors identified. Assessment: 16:30 General: Appears in no apparent distress. comfortable, Behavior is calm, cooperative. as6 Pain: Denies pain. Derm: Rash noted that is itchy, papular, red, raised, on right arm and left arm. Vital Signs: 16:04 BP 167 / 101; Pulse 74; Resp 17; Temp 97.2; Pulse Ox 95% ; Weight 96.62 kg; Height 5 ll1 ft. 5 in. ; Pain 3/10; 16:04 Body Mass Index 35.44 (96.62 kg, 165.1 cm) ll1 16:04 Pain Scale: Adult ll1 ED Course: 15:54 Patient arrived in ED. rg4 15:54 Sharita Chapa FNP-C is [facility]. kb 15:54 Michel Brown MD is Attending Physician. kb 16:04 Arm band placed on Patient placed in an exam room, on a stretcher. ll1 16:05 Triage completed. ll1 16:24 Ajay Castellanos, RN is Primary Nurse. as6 16:30 Bed in low position. Call light in reach. Provided Education on: follow up, rx teaching as6 . 16:30 No provider procedures requiring assistance completed. Patient did not have IV access as6 during this emergency room visit. Administered Medications: 16:29 Drug: predniSONE PO 40 mg PO once Route: PO; as6 16:29 Follow up: Response: Medication administered at discharge. as6 16:29 Drug: Famotidine PO 20 mg PO once Route: PO; as6 16:29 Follow up: Response: Medication administered at discharge. as6 Medication: 16:30 VIS not applicable for this client. as6 Outcome: 16:06 Discharge ordered by . kb 16:30 Discharged to home ambulatory, as6 16:30 Condition: stable 16:30 Discharge instructions given to patient, Instructed on discharge instructions, follow up and referral plans. medication usage, Demonstrated understanding of instructions, follow-up care, medications, Prescriptions given X 2, 16:31 Patient left the ED. as6 Signatures: Sharita Chapa FNP-C FNP-Ckb Garcia, Rubi rg4 Tal Rodriguez RN RN ll1 Ajay Castellanos, MAGALYS RN as6 Corrections: (The following items were deleted from the chart) 16:07 16:04 Chief complaint: Patient states: Rash with itching spreading throughout arms ll1 ll1 16:04 Resp 17bpm; 1 1
== END 2024-05-01 16:31 | disposition home or self-care (01) ==
LOC: ER 15:52
DX: L23.7 Allergic contact dermatitis due to plants, except food (principal)
CPT/HCPCS: J7512